=== PATIENT | male | born 1945 | race Caucasian/White ===

== ENCOUNTER → 2021-02-09 09:06 | Outpatient (BNVA) | payer MEDICARE, OTHER, SELFPAY | PROVIDERS: PCP Family Medicine; Visit Provider Urology | DX: N32.0 Bladder-neck obstruction (principal); N52.1 Erectile dysfunction due to diseases classified elsewhere | CPT/HCPCS: Q3014 ==

== ENCOUNTER → 2022-02-08 09:28 | Outpatient (BNVA) | payer MEDICARE, OTHER, SELFPAY | PROVIDERS: PCP Family Medicine; Visit Provider Urology | DX: N32.0 Bladder-neck obstruction (principal); N52.1 Erectile dysfunction due to diseases classified elsewhere; Z79.899 Other long term (current) drug therapy | CPT/HCPCS: 99212 ==

== ENCOUNTER 2023-02-07 09:37 | Outpatient (AMB) | payer MEDICARE, OTHER, SELFPAY ==
--- NOTE | 2023-02-07 09:43 | MHC.OFFVIS ---
Intake Intake Visit Reasons: 1Y PVR Intake Note: Patient is Present for Follow Up PVR Urology Medication: Vitamin B6, Tamsulosin Antibiotic Allergies: None Blood Thinners: None Pharmacy: [facility] PVR: 2ml Allergies No Known Allergies Allergy (Verified 02/07/23 09:44) Medication List - Last Reconciled 02/07/23 by Guido Wolf MD amlodipine 2.5 mg PO DAILY folic acid 1 mg PO DAILY losartan 100 mg PO DAILY pyridoxine (vitamin B6) (Vitamin B-6) 50 mg PO DAILY simvastatin 20 mg PO BEDTIME tamsulosin 0.4 mg PO BEDTIME 90 days HPI HPI Comments History of Present Illness Details Tj Veliz is a very pleasant male. They are a patient of Dr Armstrong. They are seen in the office today for the following urologic conditions. - erectile dysfunction - lower urinary tract symptoms Effective urinary parameters Minimal nocturia, effective stream, effective emptying Lower urinary tract symptoms Current medications tamsulosin 0.4 mg Recent labs included?a PSA (prostate-specific antigen) 2012 0.6,2016 0.8, 10/23 0.7, 10/24 0.8, 10/26 0.8, 01/27 0.9 Continue Erectile dysfunction: No longer consideration ? He presents today for?for continued evaluation and management of erectile dysfunction.? Symptoms have been present for/since?years ago.? Current treatment includes?Viagra/sildenafil 100 mg ? Treatment side effects include?none.? Prior therapies include?oral medications.? At this time he experiences erections?are partial and adequate for vaginal penetration, that last until ejaculation, CHRISTIANA 8-11 Moderate ED.? Nocturnal erections?do not occur.? Currently they are?in a stable relationship, has a partner who is interested in treatment.? Associated problems? hypertension ?Yes ? diabetes ?No ? dyslipidemia ?Yes ? Overall he is ?satisfied with the current management.? Therapeutic plan includes?12 m review.? 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 Surgical History History of surgery Social History Patient Tobacco Use Status: Never used Tobacco Review of Systems Const Denies chills and Denies fever(s) Card Reports no additional complaints and Denies syncope Resp Denies cough GI Denies abdominal pain and Denies heartburn Reports as per HPI and Denies change in libido Neuro Denies syncope Psych Denies change in libido Endo Denies change in libido Physical Exam Const General: cooperative, healthy appearing, comfortable and no acute distress Orientation/consciousness: patient oriented x3 HEENT Face and sinus: Yes normal facial exam Mouth: moist mucous membranes Neck Neck: Yes normal visual inspection, Yes full ROM and Yes trachea midline Chest Chest palpation & inspection: normal inspection of the chest Resp Effort & Inspection: normal respiratory effort, able to speak in complete sentences and no respiratory distress GI Inspection: Yes normal to inspection Back/Spine/Pelvis Cervical Spine: normal cervical lordosis Thoracic/Lumbar Spine: thoracic and lumbar spine normal to inspection Skin General skin exam: no rashes or lesions noted Neuro General: patient oriented x3, gait normal, tone normal and moves all extremities Extrem General: Yes normal to inspection and Yes capillary refill normal Office Procedures Post Void Residual Post Residual Void Post Void Residual (PVR): 2 [id number]-[id number] Void Residual by ultrasound Results AMB Urinalysis, Automated UA Leukoctes 0 Aziza/uL Last Edit by FLORINA Perez on 02/07/23 09:50 UA Nitrite Negative Last Edit by FLORINA Perez on 02/07/23 09:50 UA Urobilinogen 0.2 mg/dL Last Edit by FLORINA Perez on 02/07/23 09:50 UA Protein 0 mg/dL Last Edit by FLORINA Perez on 02/07/23 09:50 UA pH 6.0 Last Edit by FLORINA Perez on 02/07/23 09:50 UA Blood 0 Rommel/uL Last Edit by FLORINA Perez on 02/07/23 09:50 UA Specific [place] 1.020 Last Edit by FLORINA Perez on 02/07/23 09:50 UA Ketone Negative Last Edit by COMPA PerezA on 02/07/23 09:50 UA Bilirubin 0 mg/dL Last Edit by COMPA PerezA on 02/07/23 09:50 UA Glucose 0 mg/dL Last Edit by FLORINA Perez on 02/07/23 09:50 Results Reviewed Results Reviewed: Laboratory Last Values Urine pH (Auto) 6.0 02/07/23 09:44 Specific [place] (Auto) 1.020 02/07/23 09:44 Urine Protein (Auto) 0 mg/dL 02/07/23 09:44 Glucose (UA)(Auto) 0 mg/dL 02/07/23 09:44 Urine Ketones (Auto) Negative 02/07/23 09:44 Urine Blood (Auto) 0 Rommel/uL 02/07/23 09:44 Urine Nitrite (Auto) Negative 02/07/23 09:44 Urine Bilirubin (Auto) 0 mg/dL 02/07/23 09:44 Urine Urobilinogen (Auto) 0.2 mg/dL 02/07/23 09:44 Leukocyte Esterase (Auto) 0 Aziza/uL 02/07/23 09:44 Assessment & Plan Assessment & Plan (1) Bladder outlet obstruction: Code(s): N32.0 - Bladder-neck obstruction Plan Continue yearly review Orders: Orders AMB Post Void Residual by ultrasound 02/07/23 N32.0 - Bladder-neck obstruction Prostate Specific Antigen 364 Days N32.0 - Bladder-neck obstruction AMB Urinalysis Automated 02/07/23 Z13.9 - Encounter for screening, unspecified Patient Instructions: Imaging studies, laboratory and physical exam results were discussed and reviewed in detail. No major barriers to patient understanding were identified. An opportunity to ask questions regarding the treatment plan was provided. All questions were answered. The patient expressed understanding and agreement with the above treatment plan. The patient is aware they should contact our office by phone for worsening of their current condition or the appearance of new urologic symptoms. Compliance is encouraged with any medications and followup testing that is ordered. It is a privilege to participate in the urologic care of your patient. If you have any questions or concerns regarding treatment for the above conditions, or other urologic issues, please do not hesitate to contact me. The office telephone contact is [phone]. This note is constructed using voice recognition software. While every effort has been made to ensure accuracy utility aide errors may have been included. Yours sincerely, Dr Guido Wolf MD, [facility] - Urology Providers of Expert, Compassionate Care for the Genitourinary System Coding Level of Care Code Est Pt Level 4 (75632) Diagnoses Bladder outlet obstruction N32.0 CPT Codes Post Residual Void - PVR CPT Code: 38290-Lzqv Void Residual by ultrasound ([id number])
== END 2023-02-07 10:25 | disposition home or self-care (01) ==
PROVIDERS: PCP Internal Medicine; Visit Provider Urology
DX: N32.0 Bladder-neck obstruction (principal)
CPT/HCPCS: 99213

== ENCOUNTER → 2023-02-07 09:37 | Outpatient (BNVA) | payer MEDICARE, OTHER, SELFPAY | PROVIDERS: Visit Provider Urology | DX: N32.0 Bladder-neck obstruction (principal); N52.9 Male erectile dysfunction, unspecified | CPT/HCPCS: 51798; 81003; 99212 ==

== ENCOUNTER 2023-04-18 09:36 | Outpatient (AMB) | payer MEDICARE, OTHER, SELFPAY ==
--- NOTE | 2023-04-18 10:23 | A.OFFVIS_ITS ---
Intake Intake Visit Reasons: severe hydroureteronephrosis Intake Note: Patient is Present for Follow Up Urology Medication: Vitamin B6, Tamsulosin Antibiotic Allergies: None Blood Thinners: None Allergies No Known Allergies Allergy (Verified 04/18/23 10:26) HPI HPI Comments History of Present Illness Details Tj Veliz is a very pleasant male. He is a patient of Dr Whaley?. He is seen for the following urologic conditions. 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 Found to have left hydroureteronephrosis on evaluation for mildly elevated creatinine Discussed findings Plan cystoscopy, bilateral retrograde, possible left stent placement with fo llow-up Lasix renogram Lower urinary tract symptoms Current medications tamsulosin 0.4 mg Recent labs included?a PSA (prostate-specific antigen) 2012 0.6,2016 0.8, 10/23 0.7, 10/24 0.8, 10/26 0.8, 01/27 0.9 Continue Erectile dysfunction: No longer consideration ? He presents today for?for continued evaluation and management of erectile dysfunction.? Symptoms have been present for/since?years ago.? Current treatment includes?Viagra/sildenafil 100 mg ? Treatment side effects include?none.? Prior therapies include?oral medications.? At this time he experiences erections?are partial and adequate for vaginal penetration, that last until ejaculation, CHRISTIANA 8-11 Moderate ED.? Nocturnal erections?do not occur.? Currently they are?in a stable relationship, has a partner who is interested in treatment.? Associated problems? hypertension ?Yes ? diabetes ?No ? dyslipidemia ?Yes ? Overall he is ?satisfied with the current management.? Therapeutic plan includes?12 m review.? 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 Surgical History History of surgery Social History (System 03/01/23 @ 14:04 by Abi Sky) Patient Tobacco Use Status: Never used Tobacco Review of Systems Const Denies chills and Denies fever(s) Card Reports no additional complaints and Denies syncope Resp Denies cough GI Denies abdominal pain and Denies heartburn Reports as per HPI and Denies change in libido Neuro Denies syncope Psych Denies change in libido Endo Denies change in libido Physical Exam Const General: cooperative, healthy appearing, comfortable and no acute distress Orientation/consciousness: patient oriented x3 HEENT Face and sinus: Yes normal facial exam Mouth: moist mucous membranes Neck Neck: Yes normal visual inspection, Yes full ROM and Yes trachea midline Chest Chest palpation & inspection: normal inspection of the chest Resp Effort & Inspection: normal respiratory effort, able to speak in complete sentences and no respiratory distress GI Inspection: Yes normal to inspection Back/Spine/Pelvis Cervical Spine: normal cervical lordosis Thoracic/Lumbar Spine: thoracic and lumbar spine normal to inspection Skin General skin exam: no rashes or lesions noted Neuro General: patient oriented x3, gait normal, tone normal and moves all extremities Extrem General: Yes normal to inspection and Yes capillary refill normal Assessment & Plan Assessment & Plan (1) Hydroureteronephrosis: Code(s): N13.30 - Unspecified hydronephrosis Plan Risks, benefits and alternatives to therapy were discussed. These include but are not limited to infection, bleeding, damage to local organs and tissues, need for further interventions. Anesthetic risks regarding cardiac arrhythmia, blood clots, and potential mortality were discussed. The patient understands the typical recovery time and the outpatient nature of the procedure. After consideration of these risks the patient gives full informed consent and they wish to move ahead with the procedure. Cystoscopy, bilateral retrograde, left ureteroscopy with stent placement Patient Instructions: Imaging studies, laboratory and physical exam results were discussed and reviewed in detail. No major barriers to patient understanding were identified. An opportunity to ask questions regarding the treatment plan was provided. All questions were answered. The patient expressed understanding and agreement with the above treatment plan. The patient is aware they should contact our office by phone for worsening of their current condition or the appearance of new urologic symptoms. Compliance is encouraged with any medications and followup testing that is ordered. It is a privilege to participate in the urologic care of your patient. If you have any questions or concerns regarding treatment for the above conditions, or other urologic issues, please do not hesitate to contact me. The office telephone contact is [phone]. This note is constructed using voice recognition software. While every effort has been made to ensure accuracy spanish tutor errors may have been included. Yours sincerely, Dr Guido Wolf MD, [facility] - Urology Providers of Expert, Compassionate Care for the Genitourinary System Coding Level of Care Code Est Pt Level 4 (98886) Diagnoses Hydroureteronephrosis N13.30
== END 2023-04-18 11:07 | disposition home or self-care (01) ==
PROVIDERS: PCP Internal Medicine; Visit Provider Urology
DX: N13.30 Unspecified hydronephrosis (principal)
CPT/HCPCS: 99214

== ENCOUNTER → 2023-04-18 09:36 | Outpatient (BNVA) | payer MEDICARE, OTHER, SELFPAY | PROVIDERS: PCP Internal Medicine; Visit Provider Urology | DX: N13.30 Unspecified hydronephrosis (principal) | CPT/HCPCS: 99212 ==

== ENCOUNTER 2023-04-24 11:15 | Day surgery (SDC) | payer MEDICARE, OTHER, SELFPAY ==
[2023-04-24] VITALS (7 sets, daily range): BP systolic 133–148; BP diastolic 77–97; PULSE 65–108; RESP 14–18; TEMP 36.4–37; O2SAT 97–100; BMI 21.1; BMI 21.2
--- NOTE | ~2023-04-24 | FL_ITS ---
EXAMINATION: XR FLUOROSCOPY WITH IMAGES CLINICAL INFORMATION: Cystoscopy, retrograde and stent placement. Bilateral cystoscopy. COMPARISON: None available. TECHNIQUE: Fluoroscopy Supervised By: Dr. Guido Wolf. Fluoroscopy Time: 71.1 seconds. Cumulative Dose: 17.56 mGy. DAP: Not available on machine. Images: 6. FINDINGS: Fluoroscopy guidance for bilateral retrograde exam. 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 Right renal collecting system and ureter is normal. FL/FL guidance in OR IMPRESSION: Fluoroscopy guidance for bilateral retrograde exam.
[2023-04-24] MEDS: Lactated Ringers 1,000 ML 80 ML IVCONT (13:20)
--- NOTE | 2023-04-24 14:46 | PC.NURSE ---
report given to bala graham rn at this time. she is aware of three spots on preop record that need to be signed. also aware that an procedure order and antibiotic order are needed as well.
[2023-04-24] MEDS: levoFLOXacin 500 MG TABLET PO (16:31)
--- NOTE | 2023-04-24 16:41 | HO.ANESPROP2 ---
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 Family History Family history of problems with anesthesia: No Surgical History Surgical History History of surgery History of Problems with Anesthesia: No Social History Social History (System 03/01/23 @ 14:04 by Abi Sky) Patient Tobacco Use Status: Never used Tobacco Use of substances other than those prescribed or required for medical reasons: No Are you DNR?: No Advance Directives: No Advance Directives Information Provided: Yes Meds Allergies Allergy/AdvReac Type Severity Reaction Status Date / Time No Known Allergies Allergy Verified 04/24/23 12:50 Active Medications: Current Medications Lactated Ringer's (Lr) 1,000 mls @ 80 mls/hr IVCONT .[id number] [facility] Last Admin: 04/24/23 13:20 Dose: 80 mls/hr Home Medications Medication Instructions Recorded Confirmed Last Taken Type amlodipine 2.5 mg tablet 2.5 mg PO DAILY 02/09/21 04/24/23 04/24/23 History losartan 50 mg tablet 100 mg PO DAILY 02/09/21 04/24/23 Unknown History pyridoxine (vitamin B6) 50 mg 50 mg PO DAILY 02/09/21 04/24/23 Unknown History tablet (Vitamin B-6) simvastatin 20 mg tablet 20 mg PO BEDTIME 02/09/21 04/24/23 Unknown History Exam Height,Weight and Vital Signs: Height 5 ft 10 in Weight 66.95 kg Last Vital Signs Temp 98.6 F 04/24/23 13:19 Pulse 77 04/24/23 13:19 Resp 18 04/24/23 13:19 BP 133/77 04/24/23 13:19 Pulse Ox 99 04/24/23 13:19 O2 Del Method Room Air 04/24/23 13:19 Airway Mallampati Class: II TM Dist: <=3cm Neck ROM: Full Loose/Missing/Broken Teeth: No Heart: ok Lungs: ok Assessment and Plan Assessment Anesthesia Assessment: Anesthesia Plan Discussed and Chart Reviewed Final Anesthetic Review Family History of Problems with Anesthesia: No History of Problems with Anesthesia: No NPO: Yes ASA Class: III (Frailty) Final Preanesthetic Review: No Changes in Pt Med Stat, Meds/Allgs Chart Reviewed, Consent Obtained/Reviewed and Anes Risks/Benef Reviewed Patient Risk: Intermediate Procedure Risk: Low Anesthetic Plan Anesthetic Plan: MAC: and Agree w/ Assess. and Plan Disposition: Standard PACU
--- NOTE | 2023-04-24 16:52 | MHC.SHP ---
Pre-Procedural Eval Section A Date of Service: 04/24/23 The patient is an INPATIENT: No Changes since office visit: No Cold of Flu in the past 2 weeks, No New Medical Problems, No Changes in Medication and No Patient answered all questions The History & Physical has been completed within 30 days and I have reviewed it.: Yes Section B Chief Complaint: Unspecified hydronephrosis Details of Present Illness: left hydronephrosis Allergies: Allergies Allergy/AdvReac Type Severity Reaction Status Date / Time No Known Allergies Allergy Verified 04/24/23 12:50 Review of Systems Sugical H&P ROS: Negative: Constitution, Cardiovascular, Respiratory, Neurological, Psychiatric, Hem-Onc, Allergic/Immunologic, Gastrointestinal, Genitourinary, Musculoskeletal, Integumentary, Endocrine and Eyes/Ears/Nose/Throat Exam Surgical H&P Exam: Normal: HEENT, Normal: Heart, Normal: Lungs, Normal: Extremities, Normal: Abdomen, Normal: Skin and Normal: Neurological Plan Diagnosis/Plan: Unchanged (bilateral retrogrades, left stent) I have reviewed the history and physical and performed a pertinent physical examination on my patient. No changes have occurred unless specified. Time Spent With Patient Time: Total time managing care of this patient today ____ minutes.
--- NOTE | 2023-04-24 18:05 | P.OP_ITS ---
Operative Note Operative Note Date of Service: 04/24/23 Narrative: PreOperative Diagnosis: Left hydronephrosis Post Operative Diagnosis: Left hydronephrosis Procedure: Cystoscopy, bilateral retrograde, left stent placement Surgeon: Dr Guido Wolf Anesthesia: LMA Indications for procedure: Left hydronephrosis detected through occupational medicine officer Procedure: After informed consent was verified the patient was brought to the operating room and placed in a supine position. Anesthesia was administered per protocol. The patient was placed in modified dorsal lithotomy position and prepped and draped in a sterile fashion. A safety pause time-out was performed. Laterality of procedure and antibiotics were confirmed, appropriate imaging was available A 22 [place]i cystoscope was introduced per urethra. No abnormality was noted of urethra or bladder. Ureteric orifices were very difficult to find. Not visible on initial evaluation with 30 degree scope. Switch to 70 degree scope. Ureteric orifice found lateral and inferior to bladder neck. No apparent trigone. This made cannulize the station difficult. Cannularization was performed using a combination of Alberannz deflection bridge and Glidewire. The right ureter was cannulated with an open ended catheter and a retrograde examination was performed. No filling defects seen. Minimal hydronephrosis seen. The left ureter was cannulated with a Glidewire followed by an open ended catheter and a retrograde examination was performed. No filling defects seen. Moderate hydronephrosis seen. A Sensor guidewire was placed under fluoroscopy and a good coil was seen within the renal pelvis. A 6 [place]i x 28 cm double J stent was advanced over the wire and up to the level of the renal pelvis under fluoroscopic and direct visualization. The stent was seen with appropriate coil within the renal pelvis and in the bladder after deployment. The patient tolerated the procedure well and was transferred in a stable condition to the recovery area. Case discussed with Pathology: Drains: As above
[2023-04-24] MEDS: Phenazopyridine HCL 100 MG TABLET PO (18:18)
== END 2023-04-24 18:42 | disposition home or self-care (01) ==
PROVIDERS: PCP Internal Medicine; Visit Provider Urology
PROC: (CPT 52332; principal; 2023-04-24 13:30)
DX: N13.30 Unspecified hydronephrosis (principal); N52.1 Erectile dysfunction due to diseases classified elsewhere; N32.0 Bladder-neck obstruction; R39.12 Poor urinary stream; I10 Essential (primary) hypertension; E78.00 Pure hypercholesterolemia, unspecified; D51.0 Vitamin B12 deficiency anemia due to intrinsic factor deficiency; Z79.02 Long term (current) use of antithrombotics/antiplatelets; Z79.899 Other long term (current) drug therapy
CPT/HCPCS: 52332; C1758; C1769; C2617; J2704; J3010; Q9967

== ENCOUNTER → 2023-04-24 11:15 | Outpatient (BNV) | payer MEDICARE, OTHER, SELFPAY | PROVIDERS: PCP Internal Medicine; Visit Provider Urology | DX: N13.30 Unspecified hydronephrosis (principal) | CPT/HCPCS: 52332; 74420 ==

== ENCOUNTER → 2023-05-25 08:14 | Outpatient (REF) | payer MEDICARE, OTHER, SELFPAY ==
--- NOTE | ~2023-05-25 | NM_ITS ---
EXAMINATION: RENAL DYNAMIC IMAGING STUDY WITH LASIX CLINICAL INFORMATION: Hydronephrosis. Stent placed 04/24/2023 and left kidney. COMPARISON: No previous radionuclide scan is available for comparison. Retrograde renal study the time of stent placement dated 04/24/2023 is available. TECHNIQUE: Serial gamma scintillation camera images were obtained over the posterior trunk during the initial transit and subsequent distribution of a bolus intravenous injection of 10.0 mCi of Tc-99m DTPA. At 30 minutes later, 38 mg of Lasix was administered intravenously and an additional 30 minutes of images obtained. FINDINGS: Initial rapid sequence images show prompt and bilaterally symmetrical flow to the kidneys. Subsequent sequential static images obtained up to 30 minutes show good concentration bilaterally. The kidneys are approximately equal in size. There is evidence of excretory function by 3 to 4 minutes post injection bilaterally and on the initial images this is slightly more intense on the right. Faint urinary bladder activity is visualized by 10 minutes post injection and this gradually increases as a study progresses. At 30 minutes postinjection there is good visualization of activity in the urinary bladder and only minimal retention in the right renal pelvis which does not appear dilated. There is marked retention and dilatation in the left renal pelvis, however. Following Lasix administration, there is prompt washout of the small amount of retained activity in the right renal pelvis. Washout on the left is much slower and not at all complete. At the end of the study there is moderate to marked retention in the left renal collecting system and marked dilatation. There is no significant retention or dilatation on the right at this time. The T-1/2 washout times following Lasix administration are: Left 35 minutes and right 5 minutes. The relative function of the two kidneys based on the 2-3 minute images are: Left 51% and right 49%. NM/NM renal flow w pharm int IMPRESSION: LEFT KIDNEY: Normal perfusion and function. Marked hydronephrosis with high-grade partial outflow obstruction at the left ureteropelvic junction. RIGHT KIDNEY: Normal perfusion and function. No hydronephrosis or outflow obstruction.
== END ==
LOC: HO.NUCMED 08:14
PROVIDERS: PCP Internal Medicine; Visit Provider Urology
DX: N13.30 Unspecified hydronephrosis (principal); N32.0 Bladder-neck obstruction
CPT/HCPCS: 78708; A9539; J1940

== ENCOUNTER 2023-06-15 11:52 | Outpatient (REF) | payer MEDICARE, OTHER, SELFPAY ==
[2023-06-15 13:26] LABS: Appearance Urine Cloudy; Color Urine Yellow; Glucose Urine UA Negative (Negative); Leukocyte Esterase Urine Small (1+) (Negative); Nitrite Urine Negative (Negative); PH 5.5 (5.0-9.0); UMIC TRIGGER UA YES; Urine Blood Large (3+) (Negative); Urine Ketones Negative (Negative); Urine Protein 30 (1+) mg/dL (Neg-Trace)
[2023-06-15 14:33] LABS: Bacteria Urine None Seen (None Seen); Hyaline Casts Urine 0-2 /LPF (0-2); RBC Urine >20 /HPF (0-2); WBC Urine 0-5 /HPF (0-5)
== END 2023-06-15 11:53 | disposition home or self-care (01) ==
LOC: HO.LAB 11:52
PROVIDERS: Visit Provider Urology
DX: N32.0 Bladder-neck obstruction (principal); N13.30 Unspecified hydronephrosis
CPT/HCPCS: 81001; 87086

== ENCOUNTER 2023-07-05 15:38 | Outpatient (AMB) | payer MEDICARE, OTHER, SELFPAY ==
--- NOTE | 2023-07-05 15:46 | A.OFFVIS_ITS ---
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 He is a patient of Dr Whaley?. He is seen for the following urologic conditions. 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 Lasix renogram shows good uptake and excretion of both kidneys. Delay in emptying of dilated left renal pelvis likely due to dilatation. Stent in place. Discussed laser UPJ incision with AccuSize stent Will be organized Lower urinary tract symptoms Current medications tamsulosin 0.4 mg Recent labs included?a PSA (prostate-specific antigen) 2012 0.6,2016 0.8, 10/23 0.7, 10/24 0.8, 10/26 0.8, 01/27 0.9 Continue Erectile dysfunction: No longer consideration ? He presents today for?for continued evaluation and management of erectile dysfunction.? Symptoms have been present for/since?years ago.? Current treatment includes?Viagra/sildenafil 100 mg ? Treatment side effects include?none.? Prior therapies include?oral medications.? At this time he experiences erections?are partial and adequate for vaginal penetration, that last until ejaculation, CHRISTIANA 8-11 Moderate ED.? Nocturnal erections?do not occur.? Currently they are?in a stable relationship, has a partner who is interested in treatment.? Associated problems? hypertension ?Yes ? diabetes ?No ? dyslipidemia ?Yes ? Overall he is ?satisfied with the current management.? Therapeutic plan includes?12 m review.? 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 Surgical History History of surgery Social History Patient Tobacco Use Status: Never used Tobacco Review of Systems Const Denies chills and Denies fever(s) Card Reports no additional complaints and Denies syncope Resp Denies cough GI Denies abdominal pain and Denies heartburn Reports as per HPI and Denies change in libido Neuro Denies syncope Psych Denies change in libido Endo Denies change in libido Physical Exam Const General: cooperative, healthy appearing, comfortable and no acute distress Orientation/consciousness: patient oriented x3 HEENT Face and sinus: Yes normal facial exam Mouth: moist mucous membranes Neck Neck: Yes normal visual inspection, Yes full ROM and Yes trachea midline Chest Chest palpation & inspection: normal inspection of the chest Resp Effort & Inspection: normal respiratory effort, able to speak in complete sentences and no respiratory distress GI Inspection: Yes normal to inspection Back/Spine/Pelvis Cervical Spine: normal cervical lordosis Thoracic/Lumbar Spine: thoracic and lumbar spine normal to inspection Skin General skin exam: no rashes or lesions noted Neuro General: patient oriented x3, gait normal, tone normal and moves all extremities Extrem General: Yes normal to inspection and Yes capillary refill normal Office Procedures Post Void Residual Post Residual Void Post Void Residual (PVR): 24 50790-Refr Void Residual by ultrasound Assessment & Plan Assessment & Plan (1) UPJ obstruction, acquired: Code(s): N13.5 - Crossing vessel and stricture of ureter without hydronephrosis Plan Risks, benefits and alternatives to therapy were discussed. These include but are not limited to infection, bleeding, damage to local organs and tissues, need for further interventions. Anesthetic risks regarding cardiac arrhythmia, blood clots, and potential mortality were discussed. The patient understands the typical recovery time and the outpatient nature of the procedure. After consideration of these risks the patient gives full informed consent and they wish to move ahead with the procedure. Cystoscopy, left stent removal, left ureteroscopy with laser incision and AccuSize stent placement Orders: Orders AMB Post Void Residual by ultrasound Today R33.9 - Retention of urine, unspecified Patient Instructions: Imaging studies, laboratory and physical exam results were discussed and reviewed in detail. No major barriers to patient understanding were identified. An opportunity to ask questions regarding the treatment plan was provided. All questions were answered. The patient expressed understanding and agreement with the above treatment plan. The patient is aware they should contact our office by phone for worsening of their current condition or the appearance of new urologic symptoms. Compliance is encouraged with any medications and followup testing that is ordered. It is a privilege to participate in the urologic care of your patient. If you have any questions or concerns regarding treatment for the above conditions, or other urologic issues, please do not hesitate to contact me. The office telephone contact is [phone]. This note is constructed using voice recognition software. While every effort has been made to ensure accuracy television engineer errors may have been included. Yours sincerely, Dr Guido Wolf MD, [facility] - Urology Providers of Expert, Compassionate Care for the Genitourinary System Coding Level of Care Code Est Pt Level 4 (98749) Diagnoses UPJ obstruction, acquired N13.5 CPT Codes Post Residual Void - PVR CPT Code: 58621-Hxow Void Residual by ultrasound ([id number])
== END 2023-07-05 16:27 | disposition home or self-care (01) ==
PROVIDERS: PCP Internal Medicine; Visit Provider Urology
DX: N13.5 Crossing vessel and stricture of ureter without hydronephrosis (principal)
CPT/HCPCS: 99214

== ENCOUNTER → 2023-07-05 15:38 | Outpatient (BNVA) | payer MEDICARE, OTHER, SELFPAY | PROVIDERS: PCP Internal Medicine; Visit Provider Urology | DX: N13.5 Crossing vessel and stricture of ureter without hydronephrosis (principal) | CPT/HCPCS: 51798; 99212 ==

== ENCOUNTER 2023-08-14 05:51 | Day surgery (SDC) | payer MEDICARE, OTHER, SELFPAY ==
--- NOTE | 2023-08-11 10:28 | HO.ANESPROP2 ---
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 (Acute) Bladder outlet obstruction (Acute) Past Medical History Medical History (Updated 08/14/23 @ 06:23 by Renata Mix) GERD (gastroesophageal reflux disease) CKD (chronic kidney disease), stage III Pernicious anemia Hypercholesterolemia Hyperlipidemia HTN (hypertension) Weak urinary stream Bladder outlet obstruction 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 Family History Family history of problems with anesthesia: No Surgical History Surgical History (Updated 08/14/23 @ 06:13 by Renata Mix) History of surgical removal of pilonidal cyst H/O colonoscopy H/O varicose vein stripping H/O hernia repair History of Problems with Anesthesia: No Social History Social History Patient Tobacco Use Status: Former Tobacco user Quit Date: 1983 Tobacco use type: Cigarette Years Smoked: 10 Smoked in Last 30 Days: No Use of substances other than those prescribed or required for medical reasons: No Are you DNR?: No Advance Directives: No Advance Directives Information Provided: Yes Meds Allergies Allergy/AdvReac Type Severity Reaction Status Date / Time No Known Allergies Allergy Verified 08/14/23 06:14 Home Medications ?Medication ?Instructions ?Recorded ?Confirmed ?Last Taken ?Type amlodipine 2.5 mg tablet 2.5 mg PO DAILY 02/09/21 08/14/23 08/14/23 History losartan 50 mg tablet 100 mg PO DAILY 02/09/21 08/14/23 08/13/23 History pyridoxine (vitamin B6) 50 mg 50 mg PO DAILY 02/09/21 08/14/23 Unknown History tablet (Vitamin B-6) Assessment and Plan Assessment Anesthesia Assessment: Chart Reviewed Final Anesthetic Review Family History of Problems with Anesthesia: No History of Problems with Anesthesia: No Documented by User: Moo Lehman MD 08/14/23 07:26 PMF Past Medical History Medical History (Updated 08/14/23 @ 06:23 by Renata Mix) GERD (gastroesophageal reflux disease) CKD (chronic kidney disease), stage III Pernicious anemia Hypercholesterolemia Hyperlipidemia HTN (hypertension) Weak urinary stream Bladder outlet obstruction 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 Surgical History Surgical History (Updated 08/14/23 @ 06:13 by Renata Mix) History of surgical removal of pilonidal cyst H/O colonoscopy H/O varicose vein stripping H/O hernia repair Social History Social History Patient Tobacco Use Status: Former Tobacco user Quit Date: 1983 Tobacco use type: Cigarette Years Smoked: 10 Smoked in Last 30 Days: No Use of substances other than those prescribed or required for medical reasons: No Are you DNR?: No Advance Directives: No Advance Directives Information Provided: Yes Meds Allergies Allergy/AdvReac Type Severity Reaction Status Date / Time No Known Allergies Allergy Verified 08/14/23 06:14 Home Medications ?Medication ?Instructions ?Recorded ?Confirmed ?Last Taken ?Type amlodipine 2.5 mg tablet 2.5 mg PO DAILY 02/09/21 08/14/23 08/14/23 History losartan 50 mg tablet 100 mg PO DAILY 02/09/21 08/14/23 08/13/23 History pyridoxine (vitamin B6) 50 mg 50 mg PO DAILY 02/09/21 08/14/23 Unknown History tablet (Vitamin B-6) Exam Airway Mallampati Class: II TM Dist: >3cm Neck ROM: Full Heart: ok Lungs: ok Assessment and Plan Assessment Anesthesia Assessment: Anesthesia Plan Discussed Final Anesthetic Review NPO: Yes ASA Class: III Final Preanesthetic Review: No Changes in Pt Med Stat, Meds/Allgs Chart Reviewed, Consent Obtained/Reviewed and Anes Risks/Benef Reviewed Patient Risk: Intermediate Procedure Risk: Low Anesthetic Plan Anesthetic Plan: GA and Agree w/ Assess. and Plan Disposition: Standard PACU
[2023-08-14] VITALS (7 sets, daily range): BP systolic 109–145; BP diastolic 55–81; PULSE 52–94; RESP 16–18; TEMP 36.2–36.7; O2SAT 96–100; BMI 23.7
--- NOTE | ~2023-08-14 | FL_ITS ---
EXAMINATION: XR FLUOROSCOPY WITH IMAGES CLINICAL INFORMATION: Left ureteric stent placement. COMPARISON: None available. TECHNIQUE: Fluoroscopy Supervised By: Dr. Guido Wolf. Fluoroscopy Time: 53.2 seconds. Cumulative Dose: 14.60 mGy. Images: 3. FINDINGS: The submitted images show a ureteroscope and guidewire. There is contrast extravasated in the left upper quadrant, possibly outlining bowel loops. A double pigtail left ureteric stent is seen, with proximal pigtail in the left upper quadrant and distal pigtail projecting over the urinary bladder. FL/FL guidance in OR IMPRESSION: Intraoperative fluoroscopic guidance is provided during left ureteric stent placement. Please see the patient's Operative Report for full procedural details.
[2023-08-14] MEDS: Lactated Ringers 1,000 ML 100 ML IVCONT (06:35)
--- NOTE | 2023-08-14 07:00 | PC.NURSE ---
Patient arrived to preop, SB with first degree AV block on monitor. No EKG on file. Patient states I have a low heart rate usually . Dr. Lehman at bedside and made aware. No new orders.
--- NOTE | 2023-08-14 07:03 | MHC.SHP ---
Pre-Procedural Eval Section A - 24 Hr Update-Section A only Date of Service: 08/14/23 The patient is an INPATIENT: No Changes since office visit: No Cold of Flu in the past 2 weeks, No New Medical Problems, No Changes in Medication and No Patient answered all questions The patient has been examined within 24 hours of the surgical procedure. The History & Physical has been completed within 30 days and I have reviewed it.: Yes Section B - Complete if H&P > 30 days Chief Complaint: Unspecified hydronephrosis,crossing vessel Details of Present Illness: UPJ obstruction Relevant Family History (Specify if Yes): No Relevant Social History: None Present Medications: see Short Stay Collaborative assessment Medical History: Significant History History of Previous Operations: Relevant previous surgery/procedure and date(s) Allergies: Allergies Allergy/AdvReac Type Severity Reaction Status Date / Time No Known Allergies Allergy Verified 08/14/23 06:14 Review of Systems Sugical H&P ROS: Negative: Constitution, Cardiovascular, Respiratory, Neurological, Psychiatric, Hem-Onc, Allergic/Immunologic, Gastrointestinal, Genitourinary, Musculoskeletal, Integumentary, Endocrine and Eyes/Ears/Nose/Throat Exam Surgical H&P Exam: Normal: HEENT, Normal: Heart, Normal: Lungs, Normal: Extremities, Normal: Abdomen, Normal: Skin and Normal: Neurological Plan Diagnosis/Plan: Change I have reviewed the history and physical and performed a pertinent physical examination on my patient. No changes have occurred unless specified. Time Spent With Patient Time: Total time managing care of this patient today ____ minutes.
--- NOTE | 2023-08-14 08:31 | W.PM.OPN ---
Operative Note Operative Note Date of Service: 08/14/23 Narrative: PreOperative Diagnosis: Left UPJ obstruction Post Operative Diagnosis: Left UPJ obstruction Procedure: Cystoscopy, left stent removal, left retrograde, laser incision of left UPJ, retromax stent placement Surgeon: Dr Guido Wolf Anesthesia: LMA Indications for procedure: Left UPJ obstruction Procedure: After informed consent was verified the patient was brought to the operating room and placed in a supine position. Anesthesia was administered per protocol. The patient was prepped and draped in a sterile fashion. Safety pause time-out was performed. Antibiotics being given. A 22 Macedonian cystoscope was placed into the bladder. The patient had ureteric orifice that were very close to the bladder neck. Stent was seen emerging from the left side. Using an open-ended 4 Macedonian ureteric catheter a sensor guidewire was placed alongside the stent up to the renal pelvis. The indwelling stent was grasped and removed. Semi rigid ureteral scope was placed alongside the guidewire up to the stenotic UPJ. The UPJ narrowing was clearly visible. Endo incision technique was performed using a 365 holmium laser fiber. Settings of 1.5-2.0 joules with a frequency of 10-20 hertz. The UPJ was incised under direct vision. The 1st small incision was made medial to lateral. This was taken just through the mucosa as the vessel is located in this area. The 2nd and primary incision was made in the posterolateral position. This was taken down until surrounding tissue was clearly visible. The ureteral scope was able to be passed into the renal pelvis. Complete incision was confirmed by retrograde contrast examination which showed extravasation of contrast substance confirming full-thickness incision in the posterolateral position. At the completion of the incision the ureteral scope was removed. An open-ended catheter was placed over the sensor guidewire. The guidewire was switched for a super stiff Amplatz wire. An 8/12 retro max pyelostomy stent was then loaded onto the wire and using the cystoscope was guided into the renal pelvis. Imaging confirmed placement of the dilated section of the stent over the UPJ narrowing. Stent was deployed. And will remain in place for 6-8 weeks. Bladder was emptied The patient tolerated the procedure well was extubated in operating room and transferred in stable condition to the recovery area Pathology: Drains: Retro max
[2023-08-14] MEDS: Phenazopyridine HCL 100 MG TABLET PO (08:53)
== END 2023-08-14 10:12 | disposition home or self-care (01) ==
PROVIDERS: Visit Provider Urology
PROC: (CPT 52310; principal; 2023-08-14 07:30)
PROC: (CPT 52332; 2023-08-14 07:30)
DX: N13.0 Hydronephrosis with ureteropelvic junction obstruction (principal); N13.5 Crossing vessel and stricture of ureter without hydronephrosis; R33.9 Retention of urine, unspecified; N52.9 Male erectile dysfunction, unspecified; Z79.899 Other long term (current) drug therapy
CPT/HCPCS: 52332; 52276; C1758; C1769; C2617; J1956; J2704; J3010; Q9967

== ENCOUNTER → 2023-08-14 05:51 | Outpatient (BNV) | payer MEDICARE, OTHER, SELFPAY | PROVIDERS: Visit Provider Urology | DX: N13.5 Crossing vessel and stricture of ureter without hydronephrosis (principal) | CPT/HCPCS: 52332; 74420 ==

== ENCOUNTER 2023-09-12 10:56 | Outpatient (AMB) | payer MEDICARE, OTHER, SELFPAY ==
--- NOTE | 2023-09-12 10:57 | MHC.OFFVIS ---
Intake Visit Reasons: laser of UPJ obs- F/U Discuss next procedure Intake Note: Patient is Present for Telephone Follow Up For Urology Med:Tamsulosin, Vitamin B6 Antibiotic Allergy: None Blood Thinner: none Allergies No Known Allergies Allergy (Verified 08/14/23 06:14) HPI Comments Details: Tj Veliz is a very pleasant male. He is a patient of Dr Del Valle. He is seen for the following urologic conditions. 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 Telemedicine Evaluation 15 min Consultation Lucky Pai Nohemy Video attempted Discussed upcoming procedure Plan for removal of exercise stent with retrograde and possible inspection of UPJ Partial UPJ obstruction on left side Lasix renogram shows good uptake and excretion of both kidneys. Delay in emptying of dilated left renal pelvis likely due to dilatation Intervention - Discussed laser UPJ incision with AccuSize stent Lower urinary tract symptoms Current medications tamsulosin 0.4 mg Recent labs included?a PSA (prostate-specific antigen) 2012 0.6,2016 0.8, 10/23 0.7, 10/24 0.8, 10/26 0.8, 01/27 0.9 Continue Erectile dysfunction: No longer consideration ? He presents today for?for continued evaluation and management of erectile dysfunction.? Symptoms have been present for/since?years ago.? Current treatment includes?Viagra/sildenafil 100 mg ? Treatment side effects include?none.? Prior therapies include?oral medications.? At this time he experiences erections?are partial and adequate for vaginal penetration, that last until ejaculation, CHRISTIANA 8-11 Moderate ED.? Nocturnal erections?do not occur.? Currently they are?in a stable relationship, has a partner who is interested in treatment.? Associated problems? hypertension ?Yes ? diabetes ?No ? dyslipidemia ?Yes ? Overall he is ?satisfied with the current management.? Therapeutic plan includes?12 m review.? 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 Surgical History (Updated 08/14/23 @ 06:13 by Renata Mix) History of surgical removal of pilonidal cyst H/O colonoscopy H/O varicose vein stripping H/O hernia repair Social History Patient Tobacco Use Status: Former Tobacco user Quit Date: 1983 Tobacco use type: Cigarette Years Smoked: 10 Review of Systems Const All systems reviewed & are unremarkable except as noted in HPI and below Reports no additional complaints Resp Reports no additional complaints GI Reports no additional complaints Reports as per HPI Musc Reports no additional complaints Physical Exam Telemedicine evaluation Appropriate responses Regular breathing rate and rhythm HEENT Head: Yes normal to inspection Ears: hearing grossly normal bilaterally Eyes General: appearance normal, both eyes and all related structures Neck Neck: Yes normal visual inspection Chest Chest palpation & inspection: normal inspection of the chest Resp Effort & Inspection: normal respiratory effort and able to speak in complete sentences Telehealth Telehealth Telehealth Platform: Lucky Pai Location of provider rendering services: practice address Location of patient: address on file Patient Identification confirmed using: Name, : Yes Telehealth method: voice only Patient verbally consented to treatment: Yes Patient verbally consented to billing insurance company: Yes Patient informed of any privacy concerns related to visit: Yes Minutes spent on Phone/Video with Pt.: 15 Assessment & Plan Assessment & Plan (1) UPJ obstruction, acquired: Code(s): N13.5 - Crossing vessel and stricture of ureter without hydronephrosis Category: Medical (2) Hydroureteronephrosis: Code(s): N13.30 - Unspecified hydronephrosis Category: Medical Plan Upcoming procedure Risks, benefits and alternatives to therapy were discussed. These include but are not limited to infection, bleeding, damage to local organs and tissues, need for further interventions. Anesthetic risks regarding cardiac arrhythmia, blood clots, and potential mortality were discussed. The patient understands the typical recovery time and the outpatient nature of the procedure. After consideration of these risks the patient gives full informed consent and they wish to move ahead with the procedure. Cystoscopy, left stent removal, ureteroscopy Patient Instructions: Imaging studies, laboratory and physical exam results were discussed and reviewed in detail. No major barriers to patient understanding were identified. An opportunity to ask questions regarding the treatment plan was provided. All questions were answered. The patient expressed understanding and agreement with the above treatment plan. The patient is aware they should contact our office by phone for worsening of their current condition or the appearance of new urologic symptoms. Compliance is encouraged with any medications and followup testing that is ordered. It is a privilege to participate in the urologic care of your patient. If you have any questions or concerns regarding treatment for the above conditions, or other urologic issues, please do not hesitate to contact me. The office telephone contact is [phone]. This note is constructed using voice recognition software. While every effort has been made to ensure accuracy tripe cooker errors may have been included. Yours sincerely, Dr Guido Wolf MD, [facility] - Urology Providers of Expert, Compassionate Care for the Genitourinary System Coding Level of Care Code Tele Est Pt Level 3 (71007) Diagnoses UPJ obstruction, acquired N13.5 Hydroureteronephrosis N13.30
== END 2023-09-12 11:33 | disposition home or self-care (01) ==
LOC: HO.HUSH 10:56
PROVIDERS: Visit Provider Urology
DX: N13.5 Crossing vessel and stricture of ureter without hydronephrosis (principal); N13.30 Unspecified hydronephrosis
CPT/HCPCS: 99442

== ENCOUNTER → 2023-09-12 10:56 | Outpatient (BNVA) | payer MEDICARE, OTHER, SELFPAY | PROVIDERS: Visit Provider Urology ==

== ENCOUNTER 2023-09-25 11:23 | Day surgery (SDC) | payer MEDICARE, OTHER, SELFPAY ==
[2023-09-21 10:19] VITALS: BMI 23.7
--- NOTE | 2023-09-21 15:35 | HO.ANESPROP2 ---
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 (Acute) Bladder outlet obstruction (Acute) Past Medical History Medical History GERD (gastroesophageal reflux disease) CKD (chronic kidney disease), stage III Pernicious anemia Hypercholesterolemia Hyperlipidemia HTN (hypertension) Weak urinary stream Bladder outlet obstruction 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 Family History Family history of problems with anesthesia: No Surgical History Surgical History Hx of cystoscopy History of surgical removal of pilonidal cyst H/O colonoscopy H/O varicose vein stripping H/O hernia repair History of Problems with Anesthesia: No Social History Social History Patient Tobacco Use Status: Former Tobacco user Quit Date: 1983 Tobacco use type: Cigarette Years Smoked: 10 Meds Allergies Allergy/AdvReac Type Severity Reaction Status Date / Time No Known Allergies Allergy Verified 09/25/23 12:43 Home Medications ?Medication ?Instructions ?Recorded ?Confirmed ?Last Taken ?Type amlodipine 2.5 mg tablet 2.5 mg PO DAILY 02/09/21 09/21/23 09/25/23 History losartan 50 mg tablet 100 mg PO DAILY 02/09/21 09/21/23 08/13/23 History pyridoxine (vitamin B6) 50 mg 50 mg PO DAILY 02/09/21 09/21/23 Unknown History tablet (Vitamin B-6) simvastatin 20 mg tablet 20 mg PO BEDTIME 09/21/23 09/21/23 Unknown History Exam Height,Weight and Vital Signs: Height 5 ft 8 in Weight 70.67 kg Assessment and Plan Assessment Anesthesia Assessment: Chart Reviewed Final Anesthetic Review Family History of Problems with Anesthesia: No History of Problems with Anesthesia: No
[2023-09-25] VITALS (8 sets, daily range): BP systolic 118–139; BP diastolic 65–86; PULSE 55–100; RESP 14–18; TEMP 36.2–36.7; O2SAT 96–100; BMI 22.3
--- NOTE | ~2023-09-25 | FL_ITS ---
EXAMINATION: XR FLUOROSCOPY WITH IMAGES CLINICAL INFORMATION: Cystoscopy, ureteroscopy, retrograde. COMPARISON: None available. TECHNIQUE: Fluoroscopy Supervised By: Dr. Guido Wolf. Fluoroscopy Time: 0.3 minutes/19.8 seconds. Cumulative Dose: 3.77 mGy. DAP: No DAP. Images: 8. FINDINGS: Intraoperative fluoroscopy and spot films were performed during a procedure in the OR. There is left-sided pelvocaliectasis. There is irregularity of the left ureter with some proximal strictures. Please see Dr. Guido Wolf's report for complete details. FL/FL guidance in OR IMPRESSION: Intraoperative fluoroscopy and spot films were obtained. Please see Dr. Guido Wolf's report for complete details.
[2023-09-25] MEDS: Lactated Ringers 1,000 ML 100 ML IVCONT (12:55)
--- NOTE | 2023-09-25 13:00 | HO.ANESPROP2 ---
[facility] Active Problems Active Problems: All Active Problems UPJ obstruction, acquired (Acute) Hydroureteronephrosis (Acute) 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 (Acute) Bladder outlet obstruction (Acute) Past Medical History Medical History GERD (gastroesophageal reflux disease) CKD (chronic kidney disease), stage III Pernicious anemia Hypercholesterolemia Hyperlipidemia HTN (hypertension) Weak urinary stream Bladder outlet obstruction 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 Functional capacity: independent ambulation Family History Family history of problems with anesthesia: No Surgical History Surgical History Hx of cystoscopy History of surgical removal of pilonidal cyst H/O colonoscopy H/O varicose vein stripping H/O hernia repair History of Problems with Anesthesia: No Social History Social History Patient Tobacco Use Status: Former Tobacco user Quit Date: 1983 Tobacco use type: Cigarette Years Smoked: 10 Use of substances other than those prescribed or required for medical reasons: No Are you DNR?: No Advance Directives: No Advance Directives Information Provided: Yes Advance Directives on File: No Meds Allergies Allergy/AdvReac Type Severity Reaction Status Date / Time No Known Allergies Allergy Verified 09/25/23 12:43 Active Medications: Current Medications Lactated Ringer's (Lr) 1,000 mls @ 100 mls/hr IVCONT .Q10H GUZMAN Last Admin: 09/25/23 12:55 Dose: 100 mls/hr Home Medications ?Medication ?Instructions ?Recorded ?Confirmed ?Last Taken ?Type amlodipine 2.5 mg tablet 2.5 mg PO DAILY 02/09/21 09/21/23 09/25/23 History losartan 50 mg tablet 100 mg PO DAILY 02/09/21 09/21/23 08/13/23 History pyridoxine (vitamin B6) 50 mg 50 mg PO DAILY 02/09/21 09/21/23 Unknown History tablet (Vitamin B-6) simvastatin 20 mg tablet 20 mg PO BEDTIME 09/21/23 09/21/23 Unknown History Exam Height,Weight and Vital Signs: Height 5 ft 8 in Weight 66.678 kg Assessment and Plan Final Anesthetic Review Family History of Problems with Anesthesia: No History of Problems with Anesthesia: No
[2023-09-25 13:02] LABS: Hematocrit 34.1 % (42.0-52.0); Hemoglobin 11.3 g/dl (14.0-18.0); Mean Corpuscular HGB Conc 33.1 g/dl (31.0-36.0); Mean Corpuscular Hemoglobin 28.7 pg (27.0-33.0); Mean Corpuscular Volume 86.5 fL (80.0-98.0); Mean Platelet Volume 8.5 fL (9.4-12.4); Platelet Count 222 X10*3/uL (160-400); Red Blood Count 3.94 X10*6/uL (4.60-5.80); Red Cell Distribution Width 13.1 % (11.0-16.0); White Blood Count 4.7 X10*3/uL (4.8-10.8)
[2023-09-25 13:16] LABS: Anion Gap 13 (12-20); Blood Urea Nitrogen 18 mg/dL (9-16); Calcium 8.7 mg/dL (8.4-10.2); Carbon Dioxide 23 mmol/L (22-29); Chloride 111 mmol/L (96-108); Estimated Glomerular Filt Rate > 60; Glucose Fasting 87 mg/dL (60-99); Sodium 143 mmol/L (135-145)
--- NOTE | 2023-09-25 13:27 | HO.ANESPROP2 ---
[facility] Active Problems Active Problems: All Active Problems UPJ obstruction, acquired (Acute) Hydroureteronephrosis (Acute) 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 (Acute) Bladder outlet obstruction (Acute) Past Medical History Medical History GERD (gastroesophageal reflux disease) CKD (chronic kidney disease), stage III Pernicious anemia Hypercholesterolemia Hyperlipidemia HTN (hypertension) Weak urinary stream Bladder outlet obstruction 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 Functional capacity: independent ambulation Family History Family history of problems with anesthesia: No Surgical History Surgical History Hx of cystoscopy History of surgical removal of pilonidal cyst H/O colonoscopy H/O varicose vein stripping H/O hernia repair History of Problems with Anesthesia: No Social History Social History Patient Tobacco Use Status: Former Tobacco user Quit Date: 1983 Tobacco use type: Cigarette Years Smoked: 10 Use of substances other than those prescribed or required for medical reasons: No Are you DNR?: No Advance Directives: No Advance Directives Information Provided: Yes Advance Directives on File: No Meds Allergies Allergy/AdvReac Type Severity Reaction Status Date / Time No Known Allergies Allergy Verified 09/25/23 12:43 Active Medications: Current Medications Fentanyl (Fentanyl Citrate/Pf 100 Mcg/2 Ml Vial) 25 mcg IVPUSH Q5M PRN; Protocol PRN Reason: Pain, Moderate(Pain Scale 4-6) Stop: 09/25/23 19:01 Lactated Ringer's (Lr) 1,000 mls @ 100 mls/hr IVCONT .Q10H GUZMAN Last Admin: 09/25/23 12:55 Dose: 100 mls/hr Ondansetron HCl (Ondansetron Hcl 4 Mg/2 Ml Vial) 4 mg IVPUSH ONCE PRN PRN Reason: Nausea and Vomiting Stop: 09/25/23 19:01 Home Medications ?Medication ?Instructions ?Recorded ?Confirmed ?Last Taken ?Type amlodipine 2.5 mg tablet 2.5 mg PO DAILY 02/09/21 09/21/23 09/25/23 History losartan 50 mg tablet 100 mg PO DAILY 10/09/2509/21/23 08/13/23 History pyridoxine (vitamin B6) 50 mg 50 mg PO DAILY 02/09/21 09/21/23 Unknown History tablet (Vitamin B-6) simvastatin 20 mg tablet 20 mg PO BEDTIME 09/21/23 09/21/23 Unknown History Exam Height,Weight and Vital Signs: Height 5 ft 8 in Weight 66.678 kg Last Vital Signs Temp 98.1 F 09/25/23 13:09 Pulse 55 09/25/23 13:09 Resp 18 09/25/23 13:09 BP 135/65 09/25/23 13:09 Pulse Ox 98 09/25/23 13:09 O2 Del Method Room Air 09/25/23 13:09 Pertinent Lab Results Pertinent Lab Results: Laboratory Tests 09/25/23 12:59 WBC 4.7 L RBC 3.94 L Hgb 11.3 L Hct 34.1 L MCV 86.5 MCH 28.7 MCHC 33.1 RDW 13.1 Plt Count 222 MPV 8.5 L Absolute Nucleated RBC 0.000 Nucleated RBC % (auto) 0.0 Sodium 143 Potassium 4.0 Chloride 111 H Carbon Dioxide 23 Anion Gap 13 BUN 18 H Creatinine 1.18 Estim Creat Clear Calc 51.0 Estimated GFR > 60 Fasting Glucose 87 Calcium 8.7 Airway Mallampati Class: II TM Dist: >3cm Neck ROM: Full Heart: RRR Lungs: CTA Assessment and Plan Assessment Anesthesia Assessment: Anesthesia Plan Discussed Final Anesthetic Review Family History of Problems with Anesthesia: No History of Problems with Anesthesia: No NPO: Yes ASA Class: II Final Preanesthetic Review: Meds/Allgs Chart Reviewed and Anes Risks/Benef Reviewed Patient Risk: Intermediate Procedure Risk: Low Anesthetic Plan Anesthetic Plan: GA Disposition: Standard PACU
--- NOTE | 2023-09-25 15:08 | MHC.SHP ---
Pre-Procedural Eval Section A - 24 Hr Update-Section A only Date of Service: 09/25/23 The patient is an INPATIENT: No Changes since office visit: No Cold of Flu in the past 2 weeks, No New Medical Problems, No Changes in Medication and No Patient answered all questions The patient has been examined within 24 hours of the surgical procedure. The History & Physical has been completed within 30 days and I have reviewed it.: Yes Section B - Complete if H&P > 30 days Chief Complaint: Unspecified hydronephrosis Allergies: Allergies Allergy/AdvReac Type Severity Reaction Status Date / Time No Known Allergies Allergy Verified 09/25/23 12:43 Plan Diagnosis/Plan: Unchanged (Cystoscopy, left stent removal, left retrograde with possible ureteroscopy) I have reviewed the history and physical and performed a pertinent physical examination on my patient. No changes have occurred unless specified. Time Spent With Patient Time: Total time managing care of this patient today ____ minutes.
--- NOTE | 2023-09-25 16:10 | W.PM.OPN ---
Operative Note Operative Note Date of Service: 09/25/23 Narrative: PreOperative Diagnosis: Left indwelling AccuSize stent, hydronephrosis Post Operative Diagnosis: Indwelling AccuSize stent, hydronephrosis Procedure: Cystoscopy, left stent removal, left retrograde, left ureteroscopy diagnostic Surgeon: Dr Guido Wolf Anesthesia: LMA Indications for procedure: Prior incision of UPJ with laser and stent placement Procedure: After informed consent was verified the patient was brought to the operating room and placed in a supine position. Anesthesia was administered per protocol. The patient was prepped and draped in a sterile fashion. Safety pause time-out was performed. Antibiotics being given. Twenty-four Hebrew cystoscope inserted per urethra. No abnormality noted the anterior-posterior urethra. Exercise stent seen exiting left ureter. Of note his left ureteric orifice was just proximal to the bladder neck. May represent some type of variation of development. Open-ended catheter placed. Retrograde examination performed. Dilated hydronephrotic left kidney. Did appear to have some draining. Sensor guidewire placed. Flexible ureteral scope placed over the wire up into the renal pelvis. Scope easily entered renal pelvis. Wire removed. Scope used to examined UPJ. Easily able to remove and reintroduced scope indicative of at least 6-7 Hebrew opening. Kidney drained. Patient was extubated in the operating room transferred in stable condition to the recovery area. Pathology: Drains:
[2023-09-25] MEDS: Phenazopyridine HCL 100 MG TABLET PO (16:15)
== END 2023-09-25 17:41 | disposition home or self-care (01) ==
PROVIDERS: Nurse Practitioner; Visit Provider Urology
PROC: (CPT 52351; principal; 2023-09-25 14:30)
DX: N13.30 Unspecified hydronephrosis (principal); Z46.6 Encounter for fitting and adjustment of urinary device; N13.5 Crossing vessel and stricture of ureter without hydronephrosis; N52.9 Male erectile dysfunction, unspecified; R39.12 Poor urinary stream; I12.9 Hypertensive chronic kidney disease with stage 1 through stage 4 chronic kidney disease, or unspecified chronic kidney disease; N18.30 Chronic kidney disease, stage 3 unspecified; D51.0 Vitamin B12 deficiency anemia due to intrinsic factor deficiency; E78.00 Pure hypercholesterolemia, unspecified; Z79.899 Other long term (current) drug therapy; Z87.891 Personal history of nicotine dependence
CPT/HCPCS: 52351; 36415; 80048; 85027; C1758; C1769; J0131; J1956; J2704; J3010; Q9967

== ENCOUNTER → 2023-09-25 11:23 | Outpatient (BNV) | payer MEDICARE, OTHER, SELFPAY | PROVIDERS: Visit Provider Urology | DX: N13.30 Unspecified hydronephrosis (principal); Z96.0 Presence of urogenital implants | CPT/HCPCS: 52310; 74420 ==

== ENCOUNTER 2023-10-17 11:50 | Outpatient (AMB) | payer MEDICARE, OTHER, SELFPAY ==
--- NOTE | 2023-10-17 11:57 | A.OFFVIS_ITS ---
Intake Visit Reasons: L Retrograde- follow up Allergies No Known Allergies Allergy (Verified 12/19/23 09:37) Medication List - Last Reconciled 10/17/23 by Guido Wolf MD amlodipine 2.5 mg PO DAILY losartan 100 mg PO DAILY pyridoxine (vitamin B6) (Vitamin B-6) 50 mg PO DAILY simvastatin 20 mg PO BEDTIME tamsulosin 0.4 mg PO BEDTIME 90 days HPI Comments Details: Tj Veliz is a very pleasant male. He is a patient of Dr Del Valle. He is seen for the following urologic conditions. 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 Discussed findings of left hydronephrosis at procedure No evidence of obstruction Plan Lasix renogram follow-up Partial UPJ obstruction on left side Lasix renogram shows good uptake and excretion of both kidneys. Delay in emptying of dilated left renal pelvis likely due to dilatation Intervention - Discussed laser UPJ incision with AccuSize stent Lower urinary tract symptoms Current medications tamsulosin 0.4 mg Recent labs included?a PSA (prostate-specific antigen) 2012 0.6,2016 0.8, 10/23 0.7, 10/24 0.8, 10/26 0.8, 01/27 0.9 Continue Erectile dysfunction: No longer consideration ? He presents today for?for continued evaluation and management of erectile dysfunction.? Symptoms have been present for/since?years ago.? Current treatment includes?Viagra/sildenafil 100 mg ? Treatment side effects include?none.? Prior therapies include?oral medications.? At this time he experiences erections?are partial and adequate for vaginal penetration, that last until ejaculation, CHRISTIANA 8-11 Moderate ED.? Nocturnal erections?do not occur.? Currently they are?in a stable relationship, has a partner who is interested in treatment.? Associated problems? hypertension ?Yes ? diabetes ?No ? dyslipidemia ?Yes ? Overall he is ?satisfied with the current management.? Therapeutic plan includes?12 m review.? PFSH Medical History GERD (gastroesophageal reflux disease) CKD (chronic kidney disease), stage III Pernicious anemia Hypercholesterolemia Hyperlipidemia HTN (hypertension) Weak urinary stream Bladder outlet obstruction 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 Surgical History Hx of cystoscopy History of surgical removal of pilonidal cyst H/O colonoscopy H/O varicose vein stripping H/O hernia repair Social History Patient Tobacco Use Status: Former Tobacco user Tobacco use type: Cigarette Years Smoked: 10 Review of Systems Const Denies chills and Denies fever(s) Card Reports no additional complaints and Denies syncope Resp Denies cough GI Denies abdominal pain and Denies heartburn Reports as per HPI and Denies change in libido Neuro Denies syncope Psych Denies change in libido Endo Denies change in libido Physical Exam Const General: cooperative, healthy appearing, comfortable and no acute distress Orientation/consciousness: patient oriented x3 HEENT Face and sinus: Yes normal facial exam Mouth: moist mucous membranes Neck Neck: Yes normal visual inspection, Yes full ROM and Yes trachea midline Chest Chest palpation & inspection: normal inspection of the chest Resp Effort & Inspection: normal respiratory effort, able to speak in complete sentences and no respiratory distress GI Inspection: Yes normal to inspection Back/Spine/Pelvis Cervical Spine: normal cervical lordosis Thoracic/Lumbar Spine: thoracic and lumbar spine normal to inspection Skin General skin exam: no rashes or lesions noted Neuro General: patient oriented x3, gait normal, tone normal and moves all extremities Extrem General: Yes normal to inspection and Yes capillary refill normal Assessment & Plan Assessment & Plan (1) UPJ obstruction, acquired: Code(s): N13.5 - Crossing vessel and stricture of ureter without hydronephrosis Category: Medical (2) Hydroureteronephrosis: Code(s): N13.30 - Unspecified hydronephrosis Category: Medical Plan Follow-up Lasix renogram Orders: Orders NM renal flow w pharm int 2 Months N13.30 - Unspecified hydronephrosis, N13.5 - Crossing vessel and stricture of ureter without hydronephrosis Patient Instructions: Imaging studies, laboratory and physical exam results were discussed and reviewed in detail. No major barriers to patient understanding were identified. An opportunity to ask questions regarding the treatment plan was provided. All questions were answered. The patient expressed understanding and agreement with the above treatment plan. The patient is aware they should contact our office by phone for worsening of their current condition or the appearance of new urologic symptoms. Compliance is encouraged with any medications and followup testing that is ordered. It is a privilege to participate in the urologic care of your patient. If you have any questions or concerns regarding treatment for the above conditions, or other urologic issues, please do not hesitate to contact me. The office tele phone contact is [phone]. This note is constructed using voice recognition software. While every effort has been made to ensure accuracy telegraph installer errors may have been included. Yours sincerely, Dr Guido Wolf MD, [facility] - Urology Providers of Expert, Compassionate Care for the Genitourinary System Coding Level of Care Code Est Pt Level 3 (17161) Diagnoses UPJ obstruction, acquired N13.5 Hydroureteronephrosis N13.30
== END 2023-10-17 12:29 | disposition home or self-care (01) ==
PROVIDERS: Visit Provider Urology
DX: N13.5 Crossing vessel and stricture of ureter without hydronephrosis (principal); N13.30 Unspecified hydronephrosis
CPT/HCPCS: 99213

== ENCOUNTER → 2023-10-17 11:50 | Outpatient (BNVA) | payer MEDICARE, OTHER, SELFPAY | PROVIDERS: Visit Provider Urology | DX: N13.30 Unspecified hydronephrosis (principal); N13.5 Crossing vessel and stricture of ureter without hydronephrosis | CPT/HCPCS: 99212 ==

== ENCOUNTER → 2023-11-28 12:52 | Outpatient (REF) | payer MEDICARE, OTHER, SELFPAY ==
--- NOTE | ~2023-11-28 | NM_ITS ---
EXAMINATION: NM RENOGRAM WITH LASIX CLINICAL INFORMATION: Unspecified hydronephrosis. History of left-sided renal stent removal on September 2023. COMPARISON: Renal scintigram with Lasix done on 05/25/2023. TECHNIQUE: Dynamic renal scintigraphy was performed after intravenous administration of 10 mCi Tc-99m Technetium 99m DTPA 34 mg of furosemide was administered at 30 minutes and continued dynamic imaging of the abdomen/pelvis was obtained for a total of 60 minutes. FINDINGS: Left kidney 61%, previously 51% and the right kidney 39%, previously 49% of total renal uptake. Left Kidney: Normal perfusion. Following administration of furosemide, there is partial progressive washout of radiotracer activity noted with a slight downward slope. Given the presence of large extrarenal dilated pelvis, possibility of partial obstruction is not excluded. Right Kidney: Normal perfusion. Progressive washout of the radiotracer is noted before as well as after administration of Lasix. There is a progressive downward slope noted on the time activity curve. NM/NM renal flow w pharm int IMPRESSION: 1. Differential renal function: Left 61%, Right 39%. Previously 51 and 49% respectively. 2. Left kidney has no definite findings of complete obstruction. Given the presence of large extrarenal dilated pelvis, possibility of partial obstruction is not excluded. Continued follow-up is recommended. 3. Right kidney has non-obstructive parameters after diuresis.
== END ==
LOC: HO.NUCMED 12:52
PROVIDERS: Visit Provider Urology
DX: N13.5 Crossing vessel and stricture of ureter without hydronephrosis (principal); N13.30 Unspecified hydronephrosis
CPT/HCPCS: 78708; A9539; J1940

== ENCOUNTER 2023-12-19 09:36 | Outpatient (AMB) | payer MEDICARE, OTHER, SELFPAY ==
--- NOTE | 2023-12-19 09:37 | A.OFFVIS_ITS ---
Intake Visit Reasons: 2M Follow UP- Lasix renogram(set) Intake Note: Patient presents to the office today as a telehealth appt for a 2 month follow up-lasix renogram. Urology Med:Tamsulosin, Vitamin B6 Antibiotic Allergy: None Blood Thinner: none Allergies No Known Allergies Allergy (Verified 12/19/23 09:37) Medication List - Last Reconciled 12/19/23 by Guido Wolf MD amlodipine 2.5 mg PO DAILY losartan 100 mg PO DAILY pyridoxine (vitamin B6) (Vitamin B-6) 50 mg PO DAILY simvastatin 20 mg PO BEDTIME tamsulosin 0.4 mg PO BEDTIME 90 days HPI Comments Details: Tj Veliz is a very pleasant male. He is a patient of Dr Whaley?. He is seen for the following urologic conditions. 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 Telemedicine Evaluation 15 min Consultation Highfive Nohemy Video attempted Good result from Lasix renogram Will see in February Partial UPJ obstruction on left side Lasix renogram shows good uptake and excretion of both kidneys. Delay in emptying of dilated left renal pelvis likely due to dilatation 09/28 Llaser UPJ incision with AccuSize stent Imaging - 11/28 - Lasix renogram. Good uptake. Left kidney 60%. No evidence of o bstruction. Dilated renal pelvis consistent with prior imaging. Lower urinary tract symptoms Current medications tamsulosin 0.4 mg Recent labs included?a PSA (prostate-specific antigen) 2012 0.6,2016 0.8, 10/23 0.7, 10/24 0.8, 10/26 0.8, 01/27 0.9 Continue Erectile dysfunction: No longer consideration ? He presents today for?for continued evaluation and management of erectile dysfunction.? Symptoms have been present for/since?years ago.? Current treatment includes?Viagra/sildenafil 100 mg ? Treatment side effects include?none.? Prior therapies include?oral medications.? At this time he experiences erections?are partial and adequate for vaginal penetration, that last until ejaculation, CHRISTIANA 8-11 Moderate ED.? Nocturnal erections?do not occur.? Currently they are?in a stable relationship, has a partner who is interested in treatment.? Associated problems? hypertension ?Yes ? diabetes ?No ? dyslipidemia ?Yes ? Overall he is ?satisfied with the current management.? Therapeutic plan includes?12 m review.? PFSH Medical History GERD (gastroesophageal reflux disease) CKD (chronic kidney disease), stage III Pernicious anemia Hypercholesterolemia Hyperlipidemia HTN (hypertension) Weak urinary stream Bladder outlet obstruction 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 Surgical History Hx of cystoscopy History of surgical removal of pilonidal cyst H/O colonoscopy H/O varicose vein stripping H/O hernia repair Social History Patient Tobacco Use Status: Former Tobacco user Tobacco use type: Cigarette Years Smoked: 10 Review of Systems Const Denies chills and Denies fever(s) Card Reports no additional complaints and Denies syncope Resp Denies cough GI Denies abdominal pain and Denies heartburn Reports as per HPI and Denies change in libido Neuro Denies syncope Psych Denies change in libido Endo Denies change in libido Physical Exam Const General: cooperative, healthy appearing, comfortable and no acute distress Orientation/consciousness: patient oriented x3 HEENT Face and sinus: Yes normal facial exam Mouth: moist mucous membranes Neck Neck: Yes normal visual inspection, Yes full ROM and Yes trachea midline Chest Chest palpation & inspection: normal inspection of the chest Resp Effort & Inspection: normal respiratory effort, able to speak in complete sentences and no respiratory distress GI Inspection: Yes normal to inspection Back/Spine/Pelvis Cervical Spine: normal cervical lordosis Thoracic/Lumbar Spine: thoracic and lumbar spine normal to inspection Skin General skin exam: no rashes or lesions noted Neuro General: patient oriented x3, gait normal, tone normal and moves all extremities Extrem General: Yes normal to inspection and Yes capillary refill normal Telehealth Telehealth Telehealth Platform: [facility] Location of provider rendering services: practice address Location of patient: address on file Patient Identification confirmed using: Name, : Yes Telehealth method: video Patient verbally consented to treatment: Yes Patient verbally consented to billing insurance company: Yes Patient informed of any privacy concerns related to visit: Yes Minutes spent on Phone/Video with Pt.: 15 Assessment & Plan Assessment & Plan (1) Hydroureteronephrosis: Code(s): N13.30 - Unspecified hydronephrosis Category: Medical Plan February Patient Instructions: Imaging studies, laboratory and physical exam results were discussed and reviewed in detail. No major barriers to patient understanding were identified. An opportunity to ask questions regarding the treatment plan was provided. All questions were answered. The patient expressed understanding and agreement with the above treatment plan. The patient is aware they should contact our office by phone for worsening of their current condition or the appearance of new urologic symptoms. Compliance is encouraged with any medications and followup testing that is ordered. It is a privilege to participate in the urologic care of your patient. If you have any questions or concerns regarding treatment for the above conditions, or other urologic issues, please do not hesitate to contact me. The office telephone contact is [phone]. This note is constructed using voice recognition software. While every effort has been made to ensure accuracy collet driller errors may have been included. Yours sincerely, Dr Guido Wolf MD, [facility] - Urology Providers of Expert, Compassionate Care for the Genitourinary System Coding Level of Care Code Tele Est Pt Level 3 (87128) Diagnoses Hydroureteronephrosis N13.30
== END 2023-12-19 10:53 | disposition home or self-care (01) ==
PROVIDERS: Visit Provider Urology
DX: N13.30 Unspecified hydronephrosis (principal)
CPT/HCPCS: 99213

== ENCOUNTER → 2023-12-19 09:36 | Outpatient (BNVA) | payer MEDICARE, OTHER, SELFPAY | PROVIDERS: Visit Provider Urology ==

== ENCOUNTER 2024-01-31 11:46 | Outpatient (REF) | payer MEDICARE, OTHER, SELFPAY ==
[2024-01-31 12:27] LABS: MANUAL DIFF FLAG NO
[2024-01-31 14:02] LABS: Basophils Absolute Auto 0.1 X10*3/uL (0.0-0.2); Basophils Percent Auto 1.1 % (0-2); Eosinophils Absolute Auto 0.2 X10*3/uL (0.0-0.4); Eosinophils Percent Auto 4.1 % (0-4); Hematocrit 35.8 % (42.0-52.0); Hemoglobin 11.4 g/dl (14.0-18.0); Imm Gran Abs Auto 0.01 X10*3/uL (0.00-0.03); Imm Gran Pct Auto 0.2 % (0.0-0.4); Lymphocytes Absolute Auto 1.1 X10*3/uL (1.2-4.9); Lymphocytes Percent Auto 23.9 % (20-40); Mean Corpuscular HGB Conc 31.8 g/dl (31.0-36.0); Mean Corpuscular Hemoglobin 27.5 pg (27.0-33.0); Mean Corpuscular Volume 86.5 fL (80.0-98.0); Monocytes Absolute Auto 0.5 X10*3/uL (0.1-1.2); Monocytes Percent Auto 11.1 % (2-11); Neutrophils Absolute Auto 2.8 x10*3/uL (2.0-8.3); Neutrophils Percent Auto 59.6 % (45-73); Platelet Count 249 X10*3/uL (160-400); Red Blood Count 4.14 X10*6/uL (4.60-5.80); Red Cell Distribution Width 13.6 % (11.0-16.0); White Blood Count 4.6 X10*3/uL (4.8-10.8)
[2024-01-31 14:37] LABS: Parathyroid Hormone Intact 64.2 pg/mL (8.7-77.1)
[2024-01-31 14:47] LABS: Anion Gap 14 (12-20); Blood Urea Nitrogen 19 mg/dL (9-16); Calcium 9.6 mg/dL (8.4-10.2); Carbon Dioxide 26 mmol/L (22-29); Chloride 106 mmol/L (96-108); Estimated Glomerular Filt Rate 54; Potassium 4.5 mmol/L (3.3-5.1); Sodium 141 mmol/L (135-145)
[2024-01-31 14:52] LABS: Vitamin D 25-OH Total 49.1 ng/mL (>30)
[2024-01-31 15:02] LABS: Creatinine Urine 32.85 mg/dL; Microalbumin Urine < 5.0 mg/L; Total Protein Urine Random < 7 mg/dL (<12)
[2024-01-31 15:12] LABS: Prostate Specific Antigen 1.03 ng/mL (<0.05-4.0)
== END 2024-01-31 11:47 | disposition home or self-care (01) ==
LOC: HO.LAB 11:46
PROVIDERS: PCP Internal Medicine; Referring Provider Student in an Organized Health Care Education/Training Program; Visit Provider Urology
DX: N18.31 Chronic kidney disease, stage 3a (principal); Q62.39 Other obstructive defects of renal pelvis and ureter; N32.0 Bladder-neck obstruction; Z12.5 Encounter for screening for malignant neoplasm of prostate
CPT/HCPCS: 36415; 80051; 82043; 82306; 82310; 82565; 82570; 83970; 84153; 84156; 84520; 85025

== ENCOUNTER 2024-02-06 08:01 | Outpatient (AMB) | payer MEDICARE, OTHER, SELFPAY ==
--- NOTE | 2024-02-06 08:10 | A.OFFVIS_ITS ---
Intake Visit Reasons: 1Y Follow Up-PVR/PSA(set) Intake Note: Patient is Present for Follow Up PSA Urology Medication: Tamsulosin, Vitamin B6 Antibiotic Allergies:None Blood Thinners: None Recent PSA: 01/31/24- PSA 1.03 Patient states he is here for follow up and states no issues with Voiding no discomfort or pain. Mold Insert Changer Required: No Accompanied by: Self / Same As Patient Allergies No Known Allergies Allergy (Verified 02/06/24 08:15) Medication List - Last Reconciled 02/06/24 by Guido Wolf MD amlodipine 2.5 mg PO DAILY losartan 100 mg PO DAILY pyridoxine (vitamin B6) (Vitamin B-6) 50 mg PO DAILY simvastatin 20 mg PO BEDTIME tamsulosin 0.4 mg PO BEDTIME 90 days HPI Comments Details: Tj Veliz is a very pleasant male. He is a patient of Dr Whaley?. He is seen for the following urologic conditions. 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 Delay in emptying of dilated left renal pelvis likely due to dilatation 09/28 Laser UPJ incision with AccuSize stent Imaging - 11/28 - Lasix renogram. Good uptake. Left kidney 60%. No evidence of obstruction. Dilated renal pelvis consistent with prior imaging. Lower urinary tract symptoms Current medications tamsulosin 0.4 mg Recent labs included?a PSA (prostate-specific antigen) 2012 0.6,2016 0.8, 10/23 0.7, 10/24 0.8, 10/26 0.8, 01/27 0.9 Continue Erectile dysfunction: No longer consideration ? He presents today for?for continued evaluation and management of erectile dysfunction.? Symptoms have been present for/since?years ago.? Current treatment includes?Viagra/sildenafil 100 mg ? Treatment side effects include?none.? Prior therapies include?oral medications.? At this time he experiences erections?are partial and adequate for vaginal penetration, that last until ejaculation, CHRISTIANA 8-11 Moderate ED.? Nocturnal erections?do not occur.? Currently they are?in a stable relationship, has a partner who is interested in treatment.? Associated problems? hypertension ?Yes ? diabetes ?No ? dyslipidemia ?Yes ? Overall he is ?satisfied with the current management.? Therapeutic plan includes?12 m review.? PFSH Medical History GERD (gastroesophageal reflux disease) CKD (chronic kidney disease), stage III Pernicious anemia Hypercholesterolemia Hyperlipidemia HTN (hypertension) Weak urinary stream Bladder outlet obstruction 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 Surgical History Hx of cystoscopy History of surgical removal of pilonidal cyst H/O colonoscopy H/O varicose vein stripping H/O hernia repair Social History Patient Tobacco Use Status: Former Tobacco user Tobacco use type: Cigarette Years Smoked: 10 Review of Systems Const Denies chills and Denies fever(s) Card Reports no additional complaints and Denies syncope Resp Denies cough GI Denies abdominal pain and Denies heartburn Reports as per HPI and Denies change in libido Neuro Denies syncope Psych Denies change in libido Endo Denies change in libido Physical Exam Const General: cooperative, healthy appearing, comfortable and no acute distress Orientation/consciousness: patient oriented x3 HEENT Face and sinus: Yes normal facial exam Mouth: moist mucous membranes Neck Neck: Yes normal visual inspection, Yes full ROM and Yes trachea midline Chest Chest palpation & inspection: normal inspection of the chest Resp Effort & Inspection: normal respiratory effort, able to speak in complete sentences and no respiratory distress GI Inspection: Yes normal to inspection Back/Spine/Pelvis Cervical Spine: normal cervical lordosis Thoracic/Lumbar Spine: thoracic and lumbar spine normal to inspection Skin General skin exam: no rashes or lesions noted Neuro General: patient oriented x3, gait normal, tone normal and moves all extremities Extrem General: Yes normal to inspection and Yes capillary refill normal Assessment & Plan Assessment & Plan (1) Bladder outlet obstruction: Code(s): N32.0 - Bladder-neck obstruction Category: Medical (2) UPJ obstruction, acquired: Code(s): N13.5 - Crossing vessel and stricture of ureter without hydronephrosis Category: Medical Plan One year follow-up Lasix renogram Orders: Orders NM renal flow w pharm int 1 Year N13.30 - Unspecified hydronephrosis, N13.5 - Crossing vessel and stricture of ureter without hydronephrosis Patient Instructions: Imaging studies, laboratory and physical exam results were discussed and reviewed in detail. No major barriers to patient understanding were identified. An opportunity to ask questions regarding the treatment plan was provided. All questions were answered. The patient expressed understanding and agreement with the above treatment plan. The patient is aware they should contact our office by phone for worsening of their current condition or the appearance of new urologic symptoms. Compliance is encouraged with any medications and followup testing that is ordered. It is a privilege to participate in the urologic care of your patient. If you have any questions or concerns regarding treatment for the above conditions, or other urologic issues, please do not hesitate to contact me. The office telephone contact is [phone]. This note is constructed using voice recognition software. While every effort has been made to ensure accuracy director of people errors may have been included. Yours sincerely, Dr Guido Wolf MD, [facility] - Urology Providers of Expert, Compassionate Care for the Genitourinary System Coding Level of Care Code Est Pt Level 3 (58245) Diagnoses Bladder outlet obstruction N32.0 UPJ obstruction, acquired N13.5
== END 2024-02-06 08:51 | disposition home or self-care (01) ==
PROVIDERS: PCP Internal Medicine; Visit Provider Urology
DX: N32.0 Bladder-neck obstruction (principal); N13.5 Crossing vessel and stricture of ureter without hydronephrosis
CPT/HCPCS: 99213

== ENCOUNTER → 2024-02-06 08:01 | Outpatient (BNVA) | payer MEDICARE, OTHER, SELFPAY | PROVIDERS: PCP Internal Medicine; Visit Provider Urology | DX: N32.0 Bladder-neck obstruction (principal); N13.5 Crossing vessel and stricture of ureter without hydronephrosis; N52.9 Male erectile dysfunction, unspecified | CPT/HCPCS: 99212 ==

== ENCOUNTER → 2025-01-21 10:35 | Outpatient (REF) | payer MEDICARE, OTHER, SELFPAY ==
--- NOTE | ~2025-01-21 | NM_ITS ---
EXAMINATION: NM KIDNEY FLOW FUNCTION WITH RX HISTORY: N13.30 - Unspecified hydronephrosis. TECHNIQUE: A renogram and renal scan were performed following the intravenous sedation of 10 mCi technetium 99m-DTPA. The patient also received 36 mg IV Lasix over 30 minutes. COMPARISON: Comparison is made with the prior examination dated 11/27/2024. FINDINGS: Again seen is symmetric blood flow to both kidneys. The estimated split function is 52.2% on the left and 47% on the right. On the right, there is a lesion into a nondilated system with washout after Lasix administration. On the left, again seen is a dilated collecting system with accumulation of activity in a dilated renal pelvis. There is partial washout after the administration of intravenous Lasix. Findings are suggestive of partial obstruction. NM/NM renal flow w pharm int IMPRESSION: Stable examination demonstrating suggestive of partial obstruction on the left. Normal function on the right. Electronically signed by: Henry Arango MD 01/21/2025 12:31 PM EDT
--- OUTSIDE RECORDS SUMMARY | 2025-01-21 14:01 | XMS_ITS | Encounter Summary ---
Author Organization [facility] Address [address] [place] [address] Phone Care Team Providers Care Industrial Eng Name Role Phone Jono Lezama MD Primary Care Provider [phone] Encounter Details Date Type Department Care Team (Late st Contact Info) Description 07/17/2023 Documentation Only [facility] [address] [place] [address] Doris Freedman [address] [place] [phone] Social History Tobacco Use Types Packs/Day Years Used Date Smoking Tobacco: Former Cigarettes Sex and Gender Information Value Date Recorded Sex Assigned at Not on file Legal Sex Male 8:15 AM EDT Gender Identity Not on file Sexual Orientation Not on file documented as of this encounter Plan of Treatment Upcoming Encounters Date Type Department Care Team (Late st Contact Info) Description 01/27/2025 2:30 PM EDT Office Visit [facility] [address] [place] [address] Jose Mendez MD [address] [place] [address] [place] [address] documented as of this encounter Visit Diagnoses Not on filedocumented in this encounter Care Teams Industrial Eng Relationship Specialty Start Date End Date Jono Lezama MD [address] [place], [place] [phone] PCP - General Internal Medicine 04/04/23 documented as of this encounter
--- OUTSIDE RECORDS SUMMARY | 2025-01-21 14:01 | XMS_ITS | Encounter Summary ---
Author Organization [facility] Address [address] [place] [address] Phone Care Team Providers Care Federal Judge Name Role Phone Jono Lezama MD Primary Care Provider [phone] Encounter Details Date Type Department Care Team (Late st Contact Info) Description 01/24/2024 Documentation Only [facility] [address] [place] [address] Doris Freedman [address] [place] [phone] Social History Tobacco Use Types Packs/Day Years [...] Visit [facility] [address] [place] [address] Jose Mendez MD [address] [place] [address] [place] [address] documented as of this encounter Visit Diagnoses Not on filedocumented in this encounter Care Teams Federal Judge Relationship Specialty Start Date End Date Jono Lezama MD [address] [place], [place] [phone] PCP - General Internal Medicine 04/04/23 documented as of this encounter
--- OUTSIDE RECORDS SUMMARY | 2025-01-21 14:01 | XMS_ITS | Encounter Summary ---
Author Organization [facility] Address [address] [place] [address] Phone Care Team Providers Care Tumbling Barrel Painter Name Role Phone Jono Lezama MD Primary Care Provider [phone] Encounter Details Date Type Department Care Team (Late st Contact Info) Description 07/17/2023 Documentation Only [facility] [address] [place] [address] Doris Freedman [address] [place] [phone] Social History Tobacco Use Types Packs/Day Years [...] [facility] [address] [place] [address] Jose Mendez MD [address] [place] [address] [place] [address] documented as of this encounter Visit Diagnoses Not on filedocumented in this encounter Care Teams Tumbling Barrel Painter Relationship Specialty Start Date End Date Jono Lezama MD [address] [place], [place] [phone] PCP - General Internal Medicine 04/04/23 documented as of this encounter
--- OUTSIDE RECORDS SUMMARY | 2025-01-21 14:01 | XMS_ITS | Encounter Summary ---
Author Organization [facility] Address [address] [place] [address] Phone Care Team Providers Care Extension Service Agent Name Role Phone Jono Lezama MD Primary Care Provider [phone] Encounter Details Date Type Department Care Team (Late st Contact Info) Description 04/19/2023 Documentation Only [facility] [address] [place] [address] [place], [place] [address] [place] [phone] Social History Tobacco Use Types Packs/Day Years Used Date Smoking Tobacco: Never Assessed Sex and Gender Information Value Date Recorded Sex Assigned at Not on file Legal Sex Male 8:15 AM EDT Gender Identity Not on file Sexual Orientation Not on file documented as of this encounter Plan of Treatment Upcoming Encounters Date Type Department Care Team (Late st Contact Info) Description 01/27/2025 2:30 PM EDT Office Visit [facility] [address] [place] [address] Jose Mendez MD [address] [place] [address] [place] [address] documented as of this encounter Visit Diagnoses Not on filedocumented in this encounter Care Teams Extension Service Agent Relationship Specialty Start Date End Date Jono Lezama MD [address] [place] [id number] PCP - General Internal Medicine 04/04/23 documented as of this encounter
--- OUTSIDE RECORDS SUMMARY | 2025-01-21 14:01 | XMS_ITS | Encounter Summary ---
Author Organization [facility] Address [address] [place] [address] Phone Care Team Providers Care Histologic Aide Name Role Phone Jono Lezama MD Primary Care Provider [phone] Encounter Details Date Type Department Care Team (Late st Contact Info) Description 07/18/2023 Documentation Only [facility] [address] [place] [address] Doris Freedman [address] [place] [phone] Social History Tobacco Use Types Packs/Day Years [...] [facility] [address] [place] [address] Jose Mendez MD [address] [place] [address] [place] [address] documented as of this encounter Visit Diagnoses Not on filedocumented in this encounter Care Teams Histologic Aide Relationship Specialty Start Date End Date Jono Lezama MD [address] [place], [place] [phone] PCP - General Internal Medicine 04/04/23 documented as of this encounter
--- OUTSIDE RECORDS SUMMARY | 2025-01-21 14:01 | XMS_ITS | Encounter Summary ---
Author Organization [facility] Address [address] [place] [address] Phone Care Team Providers Care Mainframe Systems Administrator Name Role Phone Jono Lezama MD Primary Care Provider [phone] Encounter Details Date Type Department Care Team (Late st Contact Info) Description 07/17/2023 Documentation Only [facility] [address] [place] [address] Doris Freedman [address] [place] [phone] Social History Tobacco Use Types Packs/Day Years [...] Visit [facility] [address] [place] [address] Jose Mendez MD [address] [place] [address] [place] [address] documented as of this encounter Visit Diagnoses Not on filedocumented in this encounter Care Teams Mainframe Systems Administrator Relationship Specialty Start Date End Date Jono Lezama MD [address] [place], [place] [phone] PCP - General Internal Medicine 04/04/23 documented as of this encounter
--- OUTSIDE RECORDS SUMMARY | 2025-01-21 14:01 | XMS_ITS | Encounter Summary ---
Author Organization [facility] Address [address] [place] [address] Phone Care Team Providers Care Anesthesiologist Attending Name Role Phone Jono Lezama MD Primary Care Provider [phone] Encounter Details Date Type Department Care Team (Late st Contact Info) Description 01/24/2024 Documentation Only [facility] [address] [place] [address] Doris Freedman [address] [place] [phone] Social History Tobacco Use Types Packs/Day Years [...] Visit [facility] [address] [place] [address] Jose Mendez MD [address] [place] [address] [place] [address] documented as of this encounter Visit Diagnoses Not on filedocumented in this encounter Care Teams Anesthesiologist Attending Relationship Specialty Start Date End Date oJno Lezama MD [address] [place], [place] [phone] PCP - General Internal Medicine 04/04/23 documented as of this encounter
--- OUTSIDE RECORDS SUMMARY | 2025-01-21 14:01 | XMS_ITS | Encounter Summary ---
Author Organization [facility] Address [address] [place] [address] Phone Care Team Providers Care Criminal Intelligence Analyst Name Role Phone Jono Lezama MD Primary Care Provider [phone] Encounter Details Date Type Department Care Team (Late Contact Info) Description 04/25/2023 Documentation Only [facility] [address] [place] [address] Catherine [place], [place] [address] [place] [phone] Social History Tobacco Use Types Packs/Day Years [...] Visit [facility] [address] [place] [address] Jose Mnedez MD [address] [place] [address] [place] [address] documented as of this encounter Visit Diagnoses Not on filedocumented in this encounter Care Teams Criminal Intelligence Analyst Relationship Specialty Start Date End Date Jono Lezama MD [address] [place] [address] [id number] PCP - General Internal Medicine 04/04/23 documented as of this encounter
--- OUTSIDE RECORDS SUMMARY | 2025-01-21 14:02 | XMS_ITS | Encounter Summary ---
Author Organization [facility] Address [address] [place] [address] Phone Care Team Providers Care Cash Manager Name Role Phone Jono Lezama MD Primary Care Provider [phone] Encounter Details Date Type Department Care Team (Late st Contact Info) Description 01/25/2024 Documentation Only [facility] [address] [place] [address] Doris Freedman [address] [place] [phone] Social History Tobacco Use Types Packs/Day Years [...] Visit [facility] [address] [place] [address] Jose Mendez MD [address] [place] [address] [place] [address] documented as of this encounter Visit Diagnoses Not on filedocumented in this encounter Care Teams Cash Manager Relationship Specialty Start Date End Date Jono Lezama MD [address] [place], [place] [phone] PCP - General Internal Medicine 04/04/23 documented as of this encounter
--- OUTSIDE RECORDS SUMMARY | 2025-01-21 14:02 | XMS_ITS | Encounter Summary ---
Author Organization [facility] Address [address] [place] [address] Phone Care Team Providers Care Corporate Legal Secretary Name Role Phone Jono Lezama MD Primary Care Provider Encounter Details Date Type Department Care Team (Late st Contact Info) Description 01/25/2024 Documentation Only [facility] [address] [place] [address] Doris Freedman [address] [place] [phone] Social History Tobacco Use Types Packs/Day Years [...] Visit [facility] [address] [place] [address] Jose Mendez MD [address] [place] [address] [place] [address] documented as of this encounter Visit Diagnoses Not on filedocumented in this encounter Care Teams Corporate Legal Secretary Relationship Specialty Start Date End Date Jono Lezama MD [address] [place], [place] [phone] PCP - General Internal Medicine 04/04/23 documented as of this encounter
--- OUTSIDE RECORDS SUMMARY | 2025-01-21 14:02 | XMS_ITS | Encounter Summary ---
Author Organization [facility] Address [address] [place] [address] Phone Care Team Providers Care Duck Bill Operator Name Role Phone Jono Lezama MD Primary Care Provider [phone] Encounter Details Date Type Department Care Team (Late st Contact Info) Description 01/25/2024 Documentation Only [facility] [address] [place] [address] Doris Freedman [address] [place] [phone] Social History Tobacco Use Types Packs/Day Years [...] Visit [facility] [address] [place] [address] Jose Mendez MD [address] [place] [address] [place] [address] documented as of this encounter Visit Diagnoses Not on filedocumented in this encounter Care Teams Duck Bill Operator Relationship Specialty Start Date End Date Jono Lezama MD [address] [place], [place] [phone] PCP - General Internal Medicine 04/04/23 documented as of this encounter
--- OUTSIDE RECORDS SUMMARY | 2025-01-21 14:02 | XMS_ITS | Encounter Summary ---
Author Organization [facility] Address [address] [place] [address] Phone Care Team Providers Care Rubber Trimmer Name Role Phone Jono Lezama MD Primary Care Provider [phone] Encounter Details Date Type Department Care Team (Late st Contact Info) Description 07/17/2023 Documentation Only [facility] [address] [place] [address] Dorsi Freedman [address] [place] [phone] Social History Tobacco Use Types Packs/Day Years [...] Visit [facility] [address] [place] [address] Jose Mendez MD [address] [place] [address] [place] [address] documented as of this encounter Visit Diagnoses Not on filedocumented in this encounter Care Teams Rubber Trimmer Relationship Specialty Start Date End Date Jono Lezama MD [address] [place], [place] [phone] PCP - General Internal Medicine 04/04/23 documented as of this encounter
--- OUTSIDE RECORDS SUMMARY | 2025-01-21 14:02 | XMS_ITS | Encounter Summary ---
Author Organization [facility] Address [address] [place] [address] Phone Care Team Providers Care Art History Instructor Name Role Phone Jono Lezama MD Primary Care Provider [phone] Encounter Details Date Type Department Care Team (Late st Contact Info) Description 07/17/2023 Documentation Only [facility] [address] [place] [address] Doris Freedman [address] [place] [phone] Social History Tobacco Use Types Packs/Day Years [...] Visit [facility] [address] [place] [address] Jose Mendez MD [address] [place] [address] [place] [address] documented as of this encounter Visit Diagnoses Not on filedocumented in this encounter Care Teams Art History Instructor Relationship Specialty Start Date End Date Jono Lezama MD [address] [place], [place] [phone] PCP - General Internal Medicine 04/04/23 documented as of this encounter
--- OUTSIDE RECORDS SUMMARY | 2025-01-21 14:02 | XMS_ITS | Encounter Summary ---
Author Organization [facility] Address [address] [place] [address] Phone Care Team Providers Care Real Estate Administrator Name Role Phone Jono Lezama MD Primary Care Provider [phone] Encounter Details Date Type Department Care Team (Late st Contact Info) Description 07/18/2023 Documentation Only [facility] [address] [place] [address] Doris Freedman [address] [place] [phone] Social History Tobacco Use Types Packs/Day Years [...] Visit [facility] [address] [place] [address] Jose Mendez MD [address] [place] [address] [place] [address] documented as of this encounter Visit Diagnoses Not on filedocumented in this encounter Care Teams Real Estate Administrator Relationship Specialty Start Date End Date Jono Lezama MD [address] [place], [place] [phone] PCP - General Internal Medicine 04/04/23 documented as of this encounter
--- OUTSIDE RECORDS SUMMARY | 2025-01-21 14:02 | XMS_ITS | Clinical Summary ---
Author Organization [facility], Address [address] [place] [address] [place] [address] Phone Care Team Providers Care Calculation Clerk Name Role Phone Jono Lezama MD Primary Care Provider [phone] Allergies No known active allergies Medications amLODIPine (NORVASC) 2.5 MG tablet Take 2.5 mg by mouth every morning 05/04/2023 Active losartan (COZAAR) 50 MG tablet Take 50 mg by mouth 1 (one) time each day Active Active Problems Problem Noted Date Diagnosed Date Chronic kidney disease, stage 2 (mild) Pernicious anemia 07/17/2023 Hypertension 07/17/2023 Hyperlipidemia 07/17/2023 Hydroureteronephrosis Ureteropelvic junction obstruction Stone in kidney Poor stream of urine Other abnormal clinical findings Overview (01/25/2024): lower urinary tract symptoms Hypercholesterolemia Benign prostatic hyperplasia Immunizations Immunization Administration Dates Next Due Influenza, Unspecified 01/31/2023,01/31/2023, Moderna SARS-COV-2 03/23/2021,08/19/2020, 021 Pneumococcal Conjugate 13-Valent 11/23/2018 Pneumococcal Polysaccharide 08/18/2022 Shingrix 02/03/2023,08/18/2022 Tdap 02/17/2015 Family History Medical History Relation Comments Anemia Father Prostate cancer Father Anemia Mother Anemia Sister Relation Status Comments Father Mother Sister Social History Tobacco Use Types Packs/Day Years Used Date Smoking Tobacco: Former Cigarettes Sex and Gender Information Value Date Recorded Sex Assigned at Not on file Legal Sex Male 8:15 AM EDT Gender Identity Not on file Sexual Orientation Not on file Last Filed Vital Signs Vital Sign Reading Time Taken Comments Blood Pressure 126/72 07/22/2024 1:33 PM EDT Pulse 53 04/04/2023 3:52 PM EST Temperature - - Respiratory Rate - - Oxygen Saturation - - Inhaled Oxygen Concentration - - Weight 68.5 kg (151 lb) 07/18/2023 4:53 PM EDT Height - - Body Mass Index - - Plan of Treatment Upcoming Encounters Date Type Department Care Team (Late st Contact Info) Description 01/27/2025 2:30 PM EDT Office Visit [facility], [address] [facility] [place] [address] Jose Mendez MD [address] [place] [phone] Health Maintenance Due Date Last Done Comments Influenza Vaccine (#1) 2025 , 01/31/2023, 01/31/2023, Additional history exists Pneumococcal Vaccine: 50+ Years Completed 08/18/2022, 11/23/2018 Hepatitis B Vaccine Aged Out No longe r eligible based on patient's age to complete this topic Insurance Medicare [facility] Care Teams Calculation Clerk Relationship Specialty Start Date End Date Jono Lezama MD [address] [place] [address] PCP - General Internal Medicine 04/04/23
--- OUTSIDE RECORDS SUMMARY | 2025-01-21 14:02 | XMS_ITS | Encounter Summary ---
Author Organization [facility] Address [address] [place] [address] Phone Care Team Providers Care Circulation Sales Representative Name Role Phone Jono Lezama MD Primary Care Provider [phone] Encounter Details Date Type Department Care Team (Late st Contact Info) Description 07/22/2024 Documentation Only [facility] [address] [place] [address] Doris Freedman [address] [place] [phone] Social History Tobacco Use Types Packs/Day Years [...] Visit [facility] [address] [place] [address] Jose Mendez MD [address] [place] [address] [place] [address] documented as of this encounter Visit Diagnoses Not on filedocumented in this encounter Care Teams Circulation Sales Representative Relationship Specialty Start Date End Date Jono Lezama MD [address] [place], [place] [phone] PCP - General Internal Medicine 04/04/23 documented as of this encounter
--- OUTSIDE RECORDS SUMMARY | 2025-01-21 14:02 | XMS_ITS | Encounter Summary ---
Author Organization [facility] Address [address] [place] [address] Phone Care Team Providers Care Electric Motor Analyst Name Role Phone Jono Lezama MD Primary Care Provider Encounter Details Date Type Department Care Team (Late st Contact Info) Description 08/20/2024 Documentation Only [facility] [address] [place] [address] Doris Freedman [address] [place] [phone] Social History Tobacco Use Types Packs/Day Years [...] Visit [facility] [address] [place] [address] Jose Mendez MD [address] [place] [address] [place] [address] documented as of this encounter Visit Diagnoses Not on filedocumented in this encounter Care Teams Electric Motor Analyst Relationship Specialty Start Date End Date Jono Lezama MD [address] [place], [place] [id number] PCP - General Internal Medicine 04/04/23 documented as of this encounter
--- OUTSIDE RECORDS SUMMARY | 2025-01-21 14:02 | XMS_ITS | Encounter Summary ---
Author Organization [facility] Address [address] [place] [address] Phone Care Team Providers Care Security Business Analyst Name Role Phone Jono Lezama MD Primary Care Provider [phone] Encounter Details Date Type Department Care Team (Late st Contact Info) Description 07/22/2024 Documentation Only [facility] [address] [place] [address] Doris Freedman [address] [place] [phone] Social History Tobacco Use Types Packs/Day Years [...] Visit [facility] [address] [place] [address] Jose Mendez MD [address] [place] [address] [place] [address] documented as of this encounter Visit Diagnoses Not on filedocumented in this encounter Care Teams Security Business Analyst Relationship Specialty Start Date End Date Jono Lezama MD [address] [place], [place] [phone] PCP - General Internal Medicine 04/04/23 documented as of this encounter
--- OUTSIDE RECORDS SUMMARY | 2025-01-21 14:02 | XMS_ITS | Encounter Summary ---
Author Organization [facility] Address [address] [place] [address] Phone Care Team Providers Care Manager Sterile Name Role Phone Jono Lezama MD Primary Care Provider [phone] Encounter Details Date Type Department Care Team (Late st Contact Info) Description 08/20/2024 Documentation Only [facility] [address] [place] [address] Doris Freedman [address] [place] [phone] Social History Tobacco Use Types Packs/Day Years [...] Visit [facility] [address] [place] [address] Jose Mendez MD [address] [place] [address] [place] [address] documented as of this encounter Visit Diagnoses Not on filedocumented in this encounter Care Teams Manager Sterile Relationship Specialty Start Date End Date Jono Lezama MD [address] [place], [place] [phone] PCP - General Internal Medicine 04/04/23 documented as of this encounter
--- OUTSIDE RECORDS SUMMARY | 2025-01-21 14:02 | XMS_ITS | Encounter Summary ---
Author Organization [facility] Address [address] [place] [address] Phone Care Team Providers Care Online Journalist Name Role Phone Jono Lezama MD Primary Care Provider [phone] Encounter Details Date Type Department Care Team (Late st Contact Info) Description 07/18/2023 Documentation Only [facility] [address] [place] [address] Doris Freedman [address] [place] [phone] Social History Tobacco Use Types Packs/Day Years [...] Visit [facility] [address] [place] [address] Jose Mendez MD [address] [place] [address] [place] [address] documented as of this encounter Visit Diagnoses Not on filedocumented in this encounter Care Teams Online Journalist Relationship Specialty Start Date End Date Jono Lezama MD [address] [place], [place] [phone] PCP - General Internal Medicine 04/04/23 documented as of this encounter
--- OUTSIDE RECORDS SUMMARY | 2025-01-21 14:02 | XMS_ITS | Encounter Summary ---
Author Organization [facility] Address [address] [place] [address] Phone Care Team Providers Care Platform Architect Name Role Phone Jono Lezama MD Primary Care Provider [phone] Encounter Details Date Type Department Care Team (Late st Contact Info) Description 08/20/2024 Documentation Only [facility] [address] [place] [address] Doris Freedman [address] [place] [phone] Social History Tobacco Use Types Packs/Day Years [...] Visit [facility] [address] [place] [address] Jose Mendez MD [address] [place] [address] [place] [address] documented as of this encounter Visit Diagnoses Not on filedocumented in this encounter Care Teams Platform Architect Relationship Specialty Start Date End Date Jono Lezama MD [address] [place], [place] [phone] PCP - General Internal Medicine 04/04/23 documented as of this encounter
--- OUTSIDE RECORDS SUMMARY | 2025-01-21 14:02 | XMS_ITS | Encounter Summary ---
Author Organization [facility] Address [address] [place] [address] Phone Care Team Providers Care Spool Sorter Name Role Phone Jono Lezama MD Primary Care Provider [phone] Encounter Details Date Type Department Care Team (Late st Contact Info) Description 09/29/2022 Documentation Only [facility] [address] [place] [address] Wilfrid Whaley MD [address] [place] [address] Social History Tobacco Use Types Packs/Day Years [...] Visit [facility] [address] [place] [address] Jose Mendez MD [address] [place] [address] [place] [address] documented as of this encounter Visit Diagnoses Not on filedocumented in this encounter Care Teams Spool Sorter Relationship Specialty Start Date End Date Jono Lezama MD [address] [place], [place] [phone] PCP - General Internal Medicine 04/04/23 documented as of this encounter
--- OUTSIDE RECORDS SUMMARY | 2025-01-21 14:02 | XMS_ITS | Encounter Summary ---
Author Organization [facility] Address [address] [place] [address] Phone Care Team Providers Care Java Analyst Name Role Phone Jono Lezama MD Primary Care Provider [phone] Encounter Details Date Type Department Care Team (Late st Contact Info) Description 01/25/2024 Documentation Only [facility] [address] [place] [address] Doris Freedman [address] [place] [phone] Social History Tobacco Use Types Packs/Day Years [...] Visit [facility] [address] [place] [address] Jose Mendez MD [address] [place] [address] [place] [address] documented as of this encounter Visit Diagnoses Not on filedocumented in this encounter Care Teams Java Analyst Relationship Specialty Start Date End Date Jono Lezama MD [address] [place], [place] [phone] PCP - General Internal Medicine 04/04/23 documented as of this encounter
--- OUTSIDE RECORDS SUMMARY | 2025-01-21 14:02 | XMS_ITS | Encounter Summary ---
Author Organization [facility] Address [address] [place] [address] Phone Care Team Providers Care Manager Mutual Fund Name Role Phone Jono Lezama MD Primary Care Provider [phone] Encounter Details Date Type Department Care Team (Late st Contact Info) Description 07/22/2024 Documentation Only [facility] [address] [place] [address] Doris Freedman [address] [place] [phone] Social History Tobacco Use Types Packs/Day Years [...] Visit [facility] [address] [place] [address] Jose Mendez MD [address] [place] [address] [place] [address] documented as of this encounter Visit Diagnoses Not on filedocumented in this encounter Care Teams Manager Mutual Fund Relationship Specialty Start Date End Date Jono Lezama MD [address] [place], [place] [phone] PCP - General Internal Medicine 04/04/23 documented as of this encounter
--- OUTSIDE RECORDS SUMMARY | 2025-01-21 14:02 | XMS_ITS | Encounter Summary ---
Author Organization [facility] Address [address] [place] [address] Phone Care Team Providers Care Contract Administration Coordinator Name Role Phone Jono Lezama MD Primary Care Provider Encounter Details Date Type Department Care Team (Late st Contact Info) Description 08/20/2024 Documentation Only [facility] [address] [place] [address] Doris Freedman [address] [place] [phone] Social History Tobacco Use Types Packs/Day Years [...] Visit [facility] [address] [place] [place] [address] Jose Mendez MD [address] [place] [address] [place] [address] documented as of this encounter Visit Diagnoses Not on filedocumented in this encounter Care Teams Contract Administration Coordinator Relationship Specialty Start Date End Date Jono Lezama MD [address] [place], [place] [phone] PCP - General Internal Medicine 04/04/23 documented as of this encounter
--- OUTSIDE RECORDS SUMMARY | 2025-01-21 14:02 | XMS_ITS | Encounter Summary ---
Author Organization [facility] Address [address] [place] [address] Phone Care Team Providers Care Window Systems Administrator Name Role Phone Jono Lezama MD Primary Care Provider [phone] Encounter Details Date Type Department Care Team (Late st Contact Info) Description 07/22/2024 Documentation Only [facility] [address] [place] [address] Doris Freedman [address] [place] [phone] Social History Tobacco Use Types Packs/Day Years [...] [facility] [address] [place] [address] Jose Mendez MD [address] [place] [address] [place] [address] documented as of this encounter Visit Diagnoses Not on filedocumented in this encounter Care Teams Window Systems Administrator Relationship Specialty Start Date End Date Jono Lezama MD [address] [place], [place] [phone] PCP - General Internal Medicine 04/04/23 documented as of this encounter
== END ==
LOC: HO.NUCMED 10:35
PROVIDERS: PCP Internal Medicine; Visit Provider Urology
DX: N13.30 Unspecified hydronephrosis (principal); N13.5 Crossing vessel and stricture of ureter without hydronephrosis
CPT/HCPCS: 78708; A9539; J1938

== ENCOUNTER → 2025-01-21 10:37 | Outpatient (BNV) | payer MEDICARE, OTHER, SELFPAY | PROVIDERS: PCP Internal Medicine; Visit Provider Radiology Diagnostic Radiology | DX: N13.1 Hydronephrosis with ureteral stricture, not elsewhere classified (principal) | CPT/HCPCS: 78708 ==

== ENCOUNTER 2025-02-05 08:12 | Outpatient (AMB) | payer MEDICARE, OTHER, SELFPAY ==
--- OUTSIDE RECORDS SUMMARY | 2025-02-05 08:31 | XMS_ITS | Encounter Summary ---
Author Organization [facility] Address [address] [place] [address] Phone Care Team Providers Care Information Security Risk Analyst Name Role Phone Jono Lezama MD Primary Care Provider [phone] Encounter Details Date Type Department Care Team (Late Contact Info) Description 04/19/2023 Documentation Only [facility] [address] [place] [address] [place] [address] [place] [phone] Social History Tobacco Use Types Packs/Day Years Used Date Smoking Tobacco: Never Assessed Sex and Gender Information Value Date Recorded Sex Assigned at Not on file Legal Sex Male 8:15 AM EDT Gender Identity Not on file Sexual Orientation Not on file documented as of this encounter Plan of Treatment Upcoming Encounters Date Type Department Care Team (Late st Contact Info) Description 07/28/2025 2:00 PM EDT Office Visit [facility] [address] [place] [address] Jose Mendez MD [address] [place] [address] [place] [address] documented as of this encounter Visit Diagnoses Not on filedocumented in this encounter Care Teams Information Security Risk Analyst Relationship Specialty Start Date End Date Jono Lezama MD [address] [place] [id number] PCP - General Internal Medicine 04/04/23 documented as of this encounter
--- OUTSIDE RECORDS SUMMARY | 2025-02-05 08:31 | XMS_ITS | Encounter Summary ---
Author Organization [facility] Address [address] [place] [address] Phone Care Team Providers Care School Cleaner Name Role Phone Jono Lezama MD Primary Care Provider Encounter Details Date Type Department Care Team (Late st Contact Info) Description 09/29/2022 Documentation Only [facility] [address] [place] [address] Wilfrid Whaley MD [address] [place] [address] Social History Tobacco Use Types Packs/Day Years [...] Visit [facility] [address] [place] [address] Jose Mendez MD [address] [place] [address] [place] [address] documented as of this encounter Visit Diagnoses Not on filedocumented in this encounter Care Teams School Cleaner Relationship Specialty Start Date End Date Jono Lezama MD [address] [place], [place] [phone] PCP - General Internal Medicine 04/04/23 documented as of this encounter
--- OUTSIDE RECORDS SUMMARY | 2025-02-05 08:31 | XMS_ITS | Encounter Summary ---
Author Organization [facility] Address [address] [place] [address] Phone Care Team Providers Care Stockroom Coordinator Name Role Phone Jono Lezama MD Primary Care Provider [phone] Encounter Details Date Type Department Care Team (Late st Contact Info) Description 01/27/2025 Documentation Only [facility] [address] [place] [address] Doris Freedman [address] [place] [phone] Social History Tobacco Use Types Packs/Day Years [...] [facility] [address] [place] [address] Jose Mendez MD [address] [place] [address] [place] [address] documented as of this encounter Visit Diagnoses Not on filedocumented in this encounter Care Teams Stockroom Coordinator Relationship Specialty Start Date End Date Jono Lezama MD [address] [place], [place] [phone] PCP - General Internal Medicine 04/04/23 documented as of this encounter
--- OUTSIDE RECORDS SUMMARY | 2025-02-05 08:31 | XMS_ITS | Encounter Summary ---
Author Organization [facility] Address [address] [place] [address] Phone Care Team Providers Care Business Services Analyst Name Role Phone Jono Lezama MD Primary Care Provider [phone] Encounter Details Date Type Department Care Team (Late st Contact Info) Description 07/17/2023 Documentation Only [facility] [address] [place] [address] Doris Freedman [address] [place] [phone] Social History Tobacco Use Types Packs/Day Years [...] Visit [facility] [address] [place] [place] [address] Jose Mendez MD [address] [place] [address] [place] [address] documented as of this encounter Visit Diagnoses Not on filedocumented in this encounter Care Teams Business Services Analyst Relationship Specialty Start Date End Date Jono Lezama MD [address] [place], [place] [phone] PCP - General Internal Medicine 04/04/23 documented as of this encounter
--- OUTSIDE RECORDS SUMMARY | 2025-02-05 08:31 | XMS_ITS | Encounter Summary ---
Author Organization [facility] Address [address] [place] [address] Phone Care Team Providers Care Whizzer Operator Name Role Phone Jono Lezama MD Primary Care Provider [phone] Encounter Details Date Type Department Care Team (Late st Contact Info) Description 07/17/2023 Documentation Only [facility] [address] [place] [address] Doris Freedman [address] [place] [phone] Social History Tobacco Use Types Packs/Day Years [...] Visit [facility] [address] [place] [address] Jose Mendez MD [address] [place] [address] [place] [address] documented as of this encounter Visit Diagnoses Not on filedocumented in this encounter Care Teams Whizzer Operator Relationship Specialty Start Date End Date Jono Lezama MD [address] [place], [place] [phone] PCP - General Internal Medicine 04/04/23 documented as of this encounter
--- OUTSIDE RECORDS SUMMARY | 2025-02-05 08:31 | XMS_ITS | Encounter Summary ---
Author Organization [facility] Address [address] [place] [address] Phone Care Team Providers Care Director Of Field Sales Name Role Phone Jono Lezama MD Primary Care Provider [phone] Encounter Details Date Type Department Care Team (Late Contact Info) Description 04/25/2023 Documentation Only [facility] [address] [place] [address] [place], [place] [address] [place] [phone] Social History Tobacco Use Types Packs/Day Years [...] Visit [facility] [address] [place] [address] Jose Mendez MD [address] [place] [address] [place] [address] documented as of this encounter Visit Diagnoses Not on filedocumented in this encounter Care Teams Director Of Field Sales Relationship Specialty Start Date End Date Jono Lezama MD [address] [place] [id number] PCP - General Internal Medicine 04/04/23 documented as of this encounter
--- OUTSIDE RECORDS SUMMARY | 2025-02-05 08:31 | XMS_ITS | Encounter Summary ---
Author Organization [facility] Address [address] [place] [address] Phone Care Team Providers Care Slot Floorman Name Role Phone Wilfrid Johnston MD Primary Care Provider Unavailable Jono Lezama MD Primary Care Provider [phone] Encounter Details Date Type Department Care Team (Late st Contact Info) Description 06/06/2017 Ancillary Orders [facility], X-Ray - [address] [place] [address] Pina Kaiser, [facility] [address] [facility], [address] [place] [address] Left wrist pain Social History Tobacco Use Types Packs/Day Years Used Date Smoking Tobacco: Never Assessed Sex and Gender Information Value Date Recorded Sex Assigned at Not on file Legal Sex Male 9:22 AM EST Gender Identity Not on file Sexual Orientation Not on file documented as of this encounter Plan of Treatment Upcoming Encounters Date Type Department Care Team (Late st Contact Info) Description 04/14/2025 9:30 AM EST Office Visit [facility] Internal Medicine [address] [place] [address] [id number] Jono Lezama MD [address] [place] [address] documented as of this encounter Results * XR WRIST 3 OR MORE VIEWS (LEFT) (06/06/2017 9:51 AM EST) Anatomical Region Laterality Modality Wrist Left Radiographic Sera ging 06/06/2017 9:56 AM EST Impressions 06/06/2017 10:04 AM EST Possible nondisplaced distal radius fracture versus anatomic variant as described. 5 mm metallic foreign body in the dorsal soft tissues at the level of the second and third metacarpal heads. POS - [id number] Narrative 06/06/2017 10:04 AM EST HISTORY: Left wrist pain over the distal radius with limited range of motion and swelling after a fall COMPARISON: None FINDINGS: Five views of the left wrist are performed. There is irregular contour of the dorsal cortex of the distal radius with equivocal lucency medially. Nondisplaced fracture is possible versus an anatomic variant. No malalignment. Moderate joint space narrowing with spurring and subchondral sclerosis at the first CMC and triscaphe joints from degenerative change. No destructive bone lesion. 5 mm linear metallic radiodensity within the dorsal soft tissues between the second and third metacarpal heads. Procedure Note Saritha Briceño MD - 06/06/2017 HISTORY: Left wrist pain over the distal radius with limited range ofmotion and swelling after a fall COMPARISON: None FINDINGS: Five views of the left wrist are performed. There is irregular contour ofthe dorsal cortex of the distal radius with equivocal lucency medially.Nondisplaced fracture is possible versus an anatomic variant. Nomalalignment. Moderate joint space narrowing with spurring andsubchondral sclerosis at the first CMC and triscaphe joints fromdegenerative change. No destructive bone lesion. 5 mm linear metallicradiodensity within the dorsal soft tissues between the second and thirdmetacarpal heads. IMPRESSION: Possible nondisplaced distal radius fracture versus anatomic variant asdescribed. 5 mm metallic foreign body in the dorsal soft tissues at thelevel of the second and third metacarpal heads. POS - [id number] us Pina Kaiser SUPERVISOR SHEARING IMG XR UPPER EXTREMITY F inal Result documented in this encounter Visit Diagnoses Diagnosis Left wrist pain Pain in joint, forearm Left wrist pain Pain in joint, forearm documented in this encounter Care Teams Slot Floorman Relationship Specialty Start Date End Date Wilfrid Johnston MD PCP - General Internal Medicine 06/06/17 03/06/23 Jono Lezama MD [address] [place] [address] [email or web address] PCP - General Internal Medicine 03/07/23 documented as of this encounter Additional Source Comments The information contained in this document represents components of the legal health record. It is not the complete legal health record.[facility]
--- OUTSIDE RECORDS SUMMARY | 2025-02-05 08:31 | XMS_ITS | Encounter Summary ---
Author Organization [facility] Address [address] [place] [address] Phone Care Team Providers Care Library Science Instructor Name Role Phone Jono Lezama MD Primary Care Provider [phone] Encounter Details Date Type Department Care Team (Late st Contact Info) Description 07/17/2023 Documentation Only [facility] [address] [place] [address] Doris Freedman [address] [place] [phone] Social History Tobacco Use Types Packs/Day Years [...] Visit [facility] [address] [place] [address] Jose Mendez MD [address] [place] [address] [place] [address] documented as of this encounter Visit Diagnoses Not on filedocumented in this encounter Care Teams Library Science Instructor Relationship Specialty Start Date End Date Jono Lezama MD [address] [place], [place] [id number] PCP - General Internal Medicine 04/04/23 documented as of this encounter
--- OUTSIDE RECORDS SUMMARY | 2025-02-05 08:32 | XMS_ITS | Encounter Summary ---
Author Organization [facility] Address [address] [place] [address] Phone Care Team Providers Care Muleser Name Role Phone Jono Lezama MD Primary Care Provider [phone] Encounter Details Date Type Department Care Team (Late st Contact Info) Description 07/18/2023 Documentation Only [facility] [address] [place] [address] Doris Freedman [address] [place] [phone] Social History Tobacco Use Types Packs/Day Years [...] Visit [facility] [address] [place] [address] Jose Mendez MD [address] [place] [address] [place] [address] documented as of this encounter Visit Diagnoses Not on filedocumented in this encounter Care Teams Muleser Relationship Specialty Start Date End Date Jono Lezama MD [address] [place], [place] [phone] PCP - General Internal Medicine 04/04/23 documented as of this encounter
--- OUTSIDE RECORDS SUMMARY | 2025-02-05 08:32 | XMS_ITS | Encounter Summary ---
Author Organization [facility] Address [address] [place] [address] Phone Care Team Providers Care Industrial Organizational Psychologist Name Role Phone Jono Lezama MD Primary Care Provider Encounter Details Date Type Department Care Team (Late st Contact Info) Description 01/24/2024 Documentation Only [facility] [address] [place] [address] Doris Freedman [address] [place] [phone] Social History Tobacco Use Types Packs/Day Years [...] Visit [facility] [address] [place] [address] Jose Mendez MD [address] [place] [address] [place] [address] documented as of this encounter Visit Diagnoses Not on filedocumented in this encounter Care Teams Industrial Organizational Psychologist Relationship Specialty Start Date End Date Jono Lezama MD [address] [place], [place] [phone] PCP - General Internal Medicine 04/04/23 documented as of this encounter
--- OUTSIDE RECORDS SUMMARY | 2025-02-05 08:32 | XMS_ITS | Encounter Summary ---
Author Organization [facility] Address [address] [place] [address] Phone Care Team Providers Care Wound/Ostomy Nurse Name Role Phone Jono Lezama MD Primary Care Provider [phone] Encounter Details Date Type Department Care Team (Late st Contact Info) Description 07/22/2024 Documentation Only [facility] [address] [place] [address] Doris Freedman [address] [place] [phone] Social History Tobacco Use Types Packs/Day Years [...] Visit [facility] [address] [place] [address] Jose Mendez MD [address] [place] [address] [place] [address] documented as of this encounter Visit Diagnoses Not on filedocumented in this encounter Care Teams Wound/Ostomy Nurse Relationship Specialty Start Date End Date Jono Lezama MD [address] [place], [place] [phone] PCP - General Internal Medicine 04/04/23 documented as of this encounter
--- OUTSIDE RECORDS SUMMARY | 2025-02-05 08:32 | XMS_ITS | Encounter Summary ---
Author Organization [facility] Address [address] [place] [address] Phone Care Team Providers Care Broom Worker Name Role Phone Jono Lezama MD Primary Care Provider [phone] Encounter Details Date Type Department Care Team (Late st Contact Info) Description 07/17/2023 Documentation Only [facility] [address] [place] [address] Doris Freedman [address] [place] [phone] Social History Tobacco Use Types Packs/Day Years [...] Visit [facility] [address] [place] [address] Jose Mendez MD [address] [place] [address] [place] [address] documented as of this encounter Visit Diagnoses Not on filedocumented in this encounter Care Teams Broom Worker Relationship Specialty Start Date End Date Jono Lezama MD [address] [place], [place] [phone] PCP - General Internal Medicine 04/04/23 documented as of this encounter
--- OUTSIDE RECORDS SUMMARY | 2025-02-05 08:32 | XMS_ITS | Encounter Summary ---
Author Organization [facility] Address [address] [place] [address] Phone Care Team Providers Care Cyber Security Analyst Name Role Phone Jono Lezama MD Primary Care Provider [phone] Encounter Details Date Type Department Care Team (Late st Contact Info) Description 07/18/2023 Documentation Only [facility] [address] [place] [address] Doris Freedman [address] [place] [phone] Social History Tobacco Use Types Packs/Day Years [...] [facility] [address] [place] [address] Jose Mendez MD [address] [place] [address] [place] [address] documented as of this encounter Visit Diagnoses Not on filedocumented in this encounter Care Teams Cyber Security Analyst Relationship Specialty Start Date End Date Jono Lezama MD [address] [place], [place] [phone] PCP - General Internal Medicine 04/04/23 documented as of this encounter
--- OUTSIDE RECORDS SUMMARY | 2025-02-05 08:32 | XMS_ITS | Encounter Summary ---
Author Organization [facility] Address [address] [place] [address] Phone Care Team Providers Care Server Cashier Name Role Phone Jono Lezama MD Primary Care Provider [phone] Encounter Details Date Type Department Care Team (Late st Contact Info) Description 01/25/2024 Documentation Only [facility] [address] [place] [address] Doris Freedman [address] [place] [phone] Social History Tobacco Use Types Packs/Day Years [...] Visit [facility] [address] [place] [address] Jose Mendez MD [address] [place] [address] [place] [address] documented as of this encounter Visit Diagnoses Not on filedocumented in this encounter Care Teams Server Cashier Relationship Specialty Start Date End Date Jono Lezama MD [address] [place], [place] [phone] PCP - General Internal Medicine 04/04/23 documented as of this encounter
--- OUTSIDE RECORDS SUMMARY | 2025-02-05 08:32 | XMS_ITS | Encounter Summary ---
Author Organization [facility] Address [address] [place] [address] Phone Care Team Providers Care Night Clerk Name Role Phone Jono Lezama MD Primary Care Provider [phone] Encounter Details Date Type Department Care Team (Late st Contact Info) Description 07/18/2023 Documentation Only [facility] [address] [place] [address] Doris Freedman [address] [place] [phone] Social History Tobacco Use Types Packs/Day Years [...] Visit [facility] [address] [place] [address] Jose Mendez MD [address] [place] [address] [place] [address] documented as of this encounter Visit Diagnoses Not on filedocumented in this encounter Care Teams Night Clerk Relationship Specialty Start Date End Date Jono Lezama MD [address] [place], [place] [phone] PCP - General Internal Medicine 04/04/23 documented as of this encounter
--- OUTSIDE RECORDS SUMMARY | 2025-02-05 08:32 | XMS_ITS | Encounter Summary ---
Author Organization [facility] Address [address] [place] [address] Phone Care Team Providers Care Commercial Technician Name Role Phone Jono Lezama MD Primary Care Provider [phone] Encounter Details Date Type Department Care Team (Late st Contact Info) Description 07/17/2023 Documentation Only [facility] [address] [place] [address] Doris Freedman [address] [place] [phone] Social History Tobacco Use Types Packs/Day Years [...] Visit [facility] [address] [place] [address] Jose Mendez MD [address] [place] [address] [place] [address] documented as of this encounter Visit Diagnoses Not on filedocumented in this encounter Care Teams Commercial Technician Relationship Specialty Start Date End Date Jono Lezama MD [address] [place], [place] [phone] PCP - General Internal Medicine 04/04/23 documented as of this encounter
--- OUTSIDE RECORDS SUMMARY | 2025-02-05 08:32 | XMS_ITS | Encounter Summary ---
Author Organization [facility] Address [address] [place] [address] Phone Care Team Providers Care Florist Supplies Salesperson Name Role Phone Jono Lezama MD Primary Care Provider [phone] Encounter Details Date Type Department Care Team (Late st Contact Info) Description 01/27/2025 Documentation Only [facility] [address] [place] [address] Doris Freedman [address] [place] [phone] Social History Tobacco Use Types Packs/Day Years [...] Visit [facility] [address] [place] [address] Jose Mendez MD [address] [place] [address] [place] [address] documented as of this encounter Visit Diagnoses Not on filedocumented in this encounter Care Teams Florist Supplies Salesperson Relationship Specialty Start Date End Date Jono Lezama MD [address] [place], [place] [phone] PCP - General Internal Medicine 04/04/23 documented as of this encounter
--- OUTSIDE RECORDS SUMMARY | 2025-02-05 08:32 | XMS_ITS | Encounter Summary ---
Author Organization [facility] Address [address] [place] [address] Phone Care Team Providers Care Second Crusher Name Role Phone Jono Lezama MD Primary Care Provider [phone] Encounter Details Date Type Department Care Team (Late st Contact Info) Description 01/25/2024 Documentation Only [facility] [address] [place] [address] Doris Freedman [address] [place] [phone] Social History Tobacco Use Types Packs/Day Years [...] Visit [facility] [address] [place] [address] Jose Mendez MD [address] [place] [address] [place] [address] documented as of this encounter Visit Diagnoses Not on filedocumented in this encounter Care Teams Second Crusher Relationship Specialty Start Date End Date Jono Lezama MD [address] [place], [place] [phone] PCP - General Internal Medicine 04/04/23 documented as of this encounter
--- OUTSIDE RECORDS SUMMARY | 2025-02-05 08:32 | XMS_ITS | Encounter Summary ---
Author Organization [facility] Address [address] [place] [address] Phone Care Team Providers Care Enterprise Services Manager Name Role Phone Jono Lezama MD Primary Care Provider [phone] Encounter Details Date Type Department Care Team (Late st Contact Info) Description 07/22/2024 Documentation Only [facility] [address] [place] [address] Doris Freedman [address] [place] [phone] Social History Tobacco Use Types Packs/Day Years [...] Visit [facility] [address] [place] [address] Jose Mendez MD [address] [place] [address] [place] [address] documented as of this encounter Visit Diagnoses Not on filedocumented in this encounter Care Teams Enterprise Services Manager Relationship Specialty Start Date End Date Jono Lezama MD [address] [place], [place] [phone] PCP - General Internal Medicine 04/04/23 documented as of this encounter
--- OUTSIDE RECORDS SUMMARY | 2025-02-05 08:32 | XMS_ITS | Encounter Summary ---
Author Organization [facility] Address [address] [place] [address] Phone Care Team Providers Care Inspector Of Dredging Name Role Phone Jono Lezama MD Primary Care Provider [phone] Encounter Details Date Type Department Care Team (Late st Contact Info) Description 07/22/2024 Documentation Only [facility] [address] [place] [address] Doris Freedman [address] [place] [phone] Social History Tobacco Use Types Packs/Day Years [...] Visit [facility] [address] [place] [address] Jose Mendez MD [address] [place] [address] [place] [address] documented as of this encounter Visit Diagnoses Not on filedocumented in this encounter Care Teams Inspector Of Dredging Relationship Specialty Start Date End Date Jono Lezama MD [address] [place], [place] [phone] PCP - General Internal Medicine 04/04/23 documented as of this encounter
--- OUTSIDE RECORDS SUMMARY | 2025-02-05 08:32 | XMS_ITS | Encounter Summary ---
Author Organization [facility] Address [address] [place] [address] Phone Care Team Providers Care Fountain Pen Nibs Inspector Name Role Phone Jono Lezama MD Primary Care Provider [phone] Encounter Details Date Type Department Care Team (Late st Contact Info) Description 01/24/2024 Documentation Only [facility] [address] [place] [address] Doris Freedman [address] [place] [phone] Social History Tobacco Use Types Packs/Day Years [...] Visit [facility] [address] [place] [address] Jose Mendez MD [address] [place] [address] [place] [address] documented as of this encounter Visit Diagnoses Not on filedocumented in this encounter Care Teams Fountain Pen Nibs Inspector Relationship Specialty Start Date End Date Jono Lezama MD [address] [place], [place] [phone] PCP - General Internal Medicine 04/04/23 documented as of this encounter
--- NOTE | 2025-02-05 08:33 | MHC.OFFVIS ---
Intake Visit Reasons: 1y/Lasix renogram Intake Note: Patient is Present for 1 yr Follow Up Urology Medication: , Vitamin B6, Tamsulosin Antibiotic Allergies:None Blood Thinners: None Imaging : NM Renal Scan 01/22/48 PVR: 34 mls Ultrasound Technologist Required: No Accompanied by: Self / Same As Patient Allergies No Known Allergies Allergy (Verified 02/05/25 08:34) HPI Comments Details: Tj Veliz is a very pleasant male. He is a patient of Dr Whaley?. He is seen for the following urologic conditions. - erectile dysfunction - lower urinary tract symptoms - Partial UPJ obstruction Stamping [employer] Dr. Mendez. 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 Delay in emptying of dilated left renal pelvis likely due to dilatation 09/28 Laser left UPJ incision with AccuSize stent Imaging - 11/28 - Lasix renogram. Good uptake. Left kidney 60%. No evidence of obstruction. Dilated renal pelvis consistent with prior imaging. - 12/30 Stable examination demonstrating suggestive of partial obstruction on the left. Normal function on the right Lower urinary tract symptoms Current medications tamsulosin 0.4 mg Recent labs included?a PSA (prostate-specific antigen) 2012 0.6,2016 0.8, 10/23 0.7, 10/24 0.8, 10/26 0.8, 01/27 0.9 Continue Erectile dysfunction: No longer consideration ? He presents today for?for continued evaluation and management of erectile dysfunction.? Symptoms have been present for/since?years ago.? Current treatment includes?Viagra/sildenafil 100 mg ? Treatment side effects include?none.? Prior therapies include?oral medications.? At this time he experiences erections?are partial and adequate for vaginal penetration, that last until ejaculation, CHRISTIANA 8-11 Moderate ED.? Nocturnal erections?do not occur.? Currently they are?in a stable relationship, has a partner who is interested in treatment.? Associated problems? hypertension ?Yes ? diabetes ?No ? dyslipidemia ?Yes ? Overall he is ?satisfied with the current management.? Therapeutic plan includes?12 m review.? 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 Surgical History Hx of cystoscopy History of surgical removal of pilonidal cyst H/O colonoscopy H/O varicose vein stripping H/O hernia repair Social History Patient Tobacco Use Status: Former Tobacco user Tobacco use type: Cigarette Years Smoked: 10 Review of Systems Const Denies chills and Denies fever(s) Card Reports no additional complaints and Denies syncope Resp Denies cough GI Denies abdominal pain and Denies heartburn Reports as per HPI and Denies change in libido Neuro Denies syncope Psych Denies change in libido Endo Denies change in libido Physical Exam Const General: cooperative, healthy appearing, comfortable and no acute distress Orientation/consciousness: patient oriented x3 HEENT Face and sinus: Yes normal facial exam Mouth: moist mucous membranes Neck Neck: Yes normal visual inspection, Yes full ROM and Yes trachea midline Chest Chest palpation & inspection: normal inspection of the chest Resp Effort & Inspection: normal respiratory effort, able to speak in complete sentences and no respiratory distress GI Inspection: Yes normal to inspection Back/Spine/Pelvis Cervical Spine: normal cervical lordosis Thoracic/Lumbar Spine: thoracic and lumbar spine normal to inspection Skin General skin exam: no rashes or lesions noted Neuro General: patient oriented x3, gait normal, tone normal and moves all extremities Extrem General: Yes normal to inspection and Yes capillary refill normal Assessment & Plan Assessment & Plan (1) Bladder outlet obstruction: Code(s): N32.0 - Bladder-neck obstruction Category: Medical (2) 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: Code(s): N52.1 - Erectile dysfunction due to diseases classified elsewhere Category: Medical (3) Hydroureteronephrosis: Code(s): N13.30 - Unspecified hydronephrosis Category: Medical Plan Twelve month follow-up Patient Instructions: This note is constructed using voice recognition software. While every effort has been made to ensure accuracy professional model errors may have been included. Imaging studies, laboratory and physical exam results were discussed and reviewed in detail. No major barriers to patient understanding were identified. An opportunity to ask questions regarding the treatment plan was provided. All questions were answered. The patient expressed understanding and agreement with the above treatment plan. The patient is aware they should contact our office by phone for worsening of their current condition or the appearance of new urologic symptoms. Compliance is encouraged with any medications and followup testing that is ordered. It is a privilege to participate in the urologic care of your patient. If you have any questions or concerns regarding treatment for the above conditions, or other urologic issues, please do not hesitate to contact me. The office telephone contact is [phone]. Sincerely, Dr Guido Wolf MD, [facility] - Urology Compassionate Specialist Care for the Genitourinary System Coding Level of Care Code Est Pt Level 4 (40803) Complex EM visit Add On G2211 Diagnoses Bladder outlet obstruction N32.0 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 N52.1 Hydroureteronephrosis N13.30
--- OUTSIDE RECORDS SUMMARY | 2025-02-05 08:33 | XMS_ITS | Clinical Summary ---
Author Organization [facility] Address [address] [place] [address] Phone Care Team Providers Care Clipper Counters Name Role Phone Jono Lezama MD Primary Care Provider [phone] Allergies No known active allergies Medications amLODIPine [...] urinary tract symptoms Hypercholesterolemia Benign prostatic hyperplasia Encounters Date Type Department Care Team Description 01/27/2025 2:30 PM EDT Office Visit [facility] [address] [place] [address] Jose Mendez MD Chronic kidney disease, stage 2 (mild) (Primary Dx) 01/27/2025 Documentation Only [facility] [address] [place] [address] Doris Freedman 01/27/2025 Documentation Only [facility] [address] [place] [address] Doirs Freedman from Last 3 Months Immunizations Immunization Administration Dates Next Due Influenza, [...] Sign Reading Time Taken Comments Blood Pressure 121/69 01/27/2025 2:55 PM EDT Pulse 55 01/27/2025 2:55 PM EDT Temperature - - Respiratory Rate - - Oxygen Saturation - - Inhaled Oxygen Concentration - - Weight 68.5 kg (151 lb) 07/18/2023 4:53 PM EDT Height - - Body Mass Index - - Plan of Treatment Upcoming Encounters Date Type Department Care Team (Late st Contact Info) Description 07/28/2025 2:00 PM EDT Office Visit [facility] [address] [place] [address] Jose Mendez MD [address] [place] [address] [place] [phone] Health Maintenance Due Date Last Done Comments Influenza Vaccine (#1) 2025 4, 01/31/2023, 01/31/2023, Additional history exists Pneumococcal Vaccine: 50+ Years Completed 08/18/2022, 11/23/2018 Hepatitis B Vaccine Aged Out No longe r eligible based on patient's age to complete this topic Insurance Medicare [facility] Care Teams Clipper Counters Relationship Specialty Start Date End Date Jono Lezama MD [address] [place] [address] PCP - General Internal Medicine 04/04/23
--- OUTSIDE RECORDS SUMMARY | 2025-02-05 08:33 | XMS_ITS | Encounter Summary ---
Author Organization [facility] Address [address] [place] [address] Phone Care Team Providers Care User Experience Analyst Name Role Phone Jono Lezama MD Primary Care Provider [phone] Encounter Details Date Type Department Care Team (Late st Contact Info) Description 08/20/2024 Documentation Only [facility] [address] [place] [address] Doris Freedman [address] [place] [phone] Social History Tobacco Use Types Packs/Day Years [...] Visit [facility] [address] [place] [address] Jose Mendez MD [address] [place] [address] [place] [address] documented as of this encounter Visit Diagnoses Not on filedocumented in this encounter Care Teams User Experience Analyst Relationship Specialty Start Date End Date Jono Lezama MD [address] [place], [place] [phone] PCP - General Internal Medicine 04/04/23 documented as of this encounter
--- OUTSIDE RECORDS SUMMARY | 2025-02-05 08:33 | XMS_ITS | Encounter Summary ---
Author Organization [facility] Address [address] [place] [address] Phone Care Team Providers Care Cracking Machine Operator Name Role Phone Jono Lezama MD Primary Care Provider [phone] Encounter Details Date Type Department Care Team (Late st Contact Info) Description 01/25/2024 Documentation Only [facility] [address] [place] [address] Doris Freedman [address] [place] [phone] Social History Tobacco Use Types Packs/Day Years [...] Visit [facility] [address] [place] [address] Jose Mendez MD [address] [place] [address] [place] [address] documented as of this encounter Visit Diagnoses Not on filedocumented in this encounter Care Teams Cracking Machine Operator Relationship Specialty Start Date End Date Jono Lezama MD [address] [place], [place] [phone] PCP - General Internal Medicine 04/04/23 documented as of this encounter
--- OUTSIDE RECORDS SUMMARY | 2025-02-05 08:33 | XMS_ITS | Encounter Summary ---
Author Organization [facility] Address [address] [place] [address] Phone Care Team Providers Care Product Marketer Name Role Phone Jono Lezama MD Primary Care Provider Encounter Details Date Type Department Care Team (Late st Contact Info) Description 08/20/2024 Documentation Only [facility] [address] [place] [address] Doris Freedman [address] [place] [phone] Social History Tobacco Use Types Packs/Day Years [...] Visit [facility] [address] [place] [address] Jose Mendez MD [address] [place] [address] [place] [address] documented as of this encounter Visit Diagnoses Not on filedocumented in this encounter Care Teams Product Marketer Relationship Specialty Start Date End Date Jono Lezama MD [address] [place], [place] [phone] PCP - General Internal Medicine 04/04/23 documented as of this encounter
--- OUTSIDE RECORDS SUMMARY | 2025-02-05 08:33 | XMS_ITS | Encounter Summary ---
Author Organization [facility] Address [address] [place] [address] Phone Care Team Providers Care Continuous Mining Machine Company Miner Name Role Phone Jono Lezama MD Primary Care Provider [phone] Encounter Details Date Type Department Care Team (Late st Contact Info) Description 07/22/2024 Documentation Only [facility] [address] [place] [address] Doris Freedman [address] [place] [phone] Social History Tobacco Use Types Packs/Day Years [...] [facility] [address] [place] [address] Jose Mendez MD [address] [place] [address] [place] [address] documented as of this encounter Visit Diagnoses Not on filedocumented in this encounter Care Teams Continuous Mining Machine Company Miner Relationship Specialty Start Date End Date Jono Lezama MD [address] [place], [place] [phone] PCP - General Internal Medicine 04/04/23 documented as of this encounter
--- OUTSIDE RECORDS SUMMARY | 2025-02-05 08:33 | XMS_ITS | Encounter Summary ---
Author Organization [facility] Address [address] [place] [address] [place] [address] Phone Care Team Providers Care Offal Baler Name Role Phone Jono Lezama MD Primary Care Provider Reason for Referral * Hospital - Outpatient - Closed Specialty Diagnoses / Procedures Referred By Yolanda wynn Referred To Contact Radiology Procedures Outside [place] Imaging Report Only [facility] Internal Medicine [address] [place] [address] Phone: tel: fax: Referral ID Status Reason Start Date Expiration Date Visits Re quested Visits Authorized [id number] Closed 01/22/2025 1 1 Encounter Details Date Type Department Care Team (Late st Contact Info) Description 01/22/2025 Orders Only [facility] Internal Medicine [address] [place] [address] Susanna Staton MD [address] [place] [address] Social History Tobacco Use Types Packs/Day Years Used Date Smoking Tobacco: Former Cigarettes 23 23 1 959 - 1982 Smokeless Tobacco: Never Alcohol Use Standard Drinks/Week Comments Not Currently 0 (1 standard drink = 0.6 oz pur e alcohol) Child or Family Care Answer Date Record ed Do you have problems with on e of the following making it difficult for you to work, study, or receive health care? No 01/31/2023 Education Answer Date Recorded Are you interested in more education? Not on waylon e 10/05/2022 Are you concerned about learning? Not on file 10/05/2022 No 10/05/2022 No 10/05/2022 Food Answer Date Recorded Within the past 6 months we worried whether our food would run out before we got money to buy more. Never True 01/31/2023 Within the past 6 months the food we bought just didn't last and we didn't have enough money to get more. Never True Residential Stability Answer Date Recor ded What is your housing situation today? I have kehinde sing 01/31/2023 How many times have you move d in the past 12 months? Zero (I did not move) 01/31/2023 Paying for Meds Answer Date Recorded Do you have trouble paying for medicines? No 01/31/2023 Paying Utility Bills Answer Date Record ed Do you have trouble paying your heating or elect ricity bill? No 01/31/2023 Transportation Answer Date Recorded Has the lack of transportati on kept you from medical appointments or from getting medications? No 01/31/2023 Digital Access Answer Date Recorded No 01/31/2023 Yes 01/31/2023 Do you have reliable internet access at home? Ye s 01/31/2023 Do you have a device (e.g., phone, tablet, computer) with a working camera? Yes 01/31/2023 Intimate Partner Violence Answer Date R ecorded Denied Basic Needs Not on file 10/21/2024 In the past 12 months have y ou been in a relationship with a person who hurts, threatens, or tries to control you? No 10/21/2024 Worried food would run out Not on file 10/21 In the past 12 months have y ou been in a relationship with a person who hurts, threatens, or tries to control you? No 10/21/2024 Sex and Gender Information Value Date Recorded Sex Assigned at Not on file Legal Sex Male 9:22 AM EST Gender Identity Not on file Sexual Orientation Not on file documented as of this encounter Plan of Treatment Upcoming Encounters Date Type Department Care Team (Late st Contact Info) Description 04/14/2025 9:30 AM EST Office Visit [facility] [place] Internal Medicine [address] [place] [address] Jono Lezama MD [address] [place] [address] [email or web address] documented as of this encounter Procedures Procedure Name Priority Date/Time Associated Diagnosis Comments OUTSIDE [place] IMAGING REPORT ONLY Routine 01/21/2025 2:54 PM EDT documented in this encounter Results * Outside [place] Imaging Report Only (01/21/2025 2:54 PM EDT) us Historical Provider MD [place] ABDOMEN Final Res ult documented in this encounter Visit Diagnoses Not on filedocumented in this encounter Additional Health Concerns Assessment Noted Time PHQ-2 Depression Total Score: 0 10/22/19 25 8:08 AM EDT documented as of this encounter Care Teams Offal Baler Relationship Specialty Start Date End Date Jono Lezama MD [address] [place] [address] [email or web address] PCP - General Internal Medicine 03/07/23 documented as of this encounter Additional Source Comments The information contained in this document represents components of the legal health record. It is not the complete legal health record.[facility]
--- OUTSIDE RECORDS SUMMARY | 2025-02-05 08:33 | XMS_ITS | Clinical Summary ---
Author Organization [facility] Address [address] [place] [address] Phone Care Team Providers Care Dough Maker Name Role Phone Jono Lezama MD Primary Care Provider [phone] Allergies No known active allergies Medications tamsulosin (FLOMAX) 0.4 mg Cap Take 0.4 mg by mouth nightly at bedtime. 3 Active cyanocobalamin, vitamin B-12, 1000 MCG tablet Take 1 tablet by mouth daily. Active amLODIPine (NORVASC) 2.5 MG tabletIndications :Hypertensive disorder TAKE 1 TABLET BY MOUTH EVERY DAY IN THE MORNING 90 tablet 3 5 Active losartan (COZAAR) 50 MG tabletIndications :Primary hypertension Take 1 tablet (50 mg total) by mouth daily. 90 tablet 3 5 Active losartan (COZAAR) 50 MG tabletIndications :Primary hypertension Take 1 tablet (50 mg total) by mouth daily. 90 tablet 3 4 01/10/20 25 Discontinu ed(Reorder ) Active Problems Problem Noted Date Diagnosed Date Internal hernia 08/06/2024 Assessment & Plan (08/06/2024 11:07 AM EDT): We confirmed with the patient that he could continue with a regular diet, stay well-hydrated. The diagnosis here was an internal hernia is unclear whether constipation ultimately because this Charlie advising him until October to stay away from the iron which she was using for his renal anemia. Will recheck CBC when we see him in October. Consider referral to nephrology. He does have a follow-up with the surgeon regarding the laparoscopic reduction of the internal hernia. He is having no issues now, there will call him to set up the appointment and follow-up. In regards to his B12 deficiency continue 1000 mcg daily but not 2500 mcg. No need for folic acid, hold off on the iron daily. The patient's daughter took note of the recommendations and will remind patient when at home. Routine general medical exam ination at a [facility] care facility 09/11/2023 Weight loss, abnormal 01/31/2023 Assessment & Plan (01/31/2023 3:28 PM EDT): The weight loss appears to be stress related. Recommend supplementary shakes to prop up weight, take 3 times daily for a month and weigh weekly. Anemia due to stage 3a chronic kidney disease Assessment & Plan (05/16/2023 10:14 AM EST): Recheck CBC in 3 months along with Chem-7 with particular attention to MCV. Patient should be well-hydrated when going for labs. Assessment & Plan (01/31/2023 3:30 PM EDT): Check ferritin and B12 level, assess hematocrit and hemoglobin, most recent labs showing mild anemia B12 deficiency 01/31/2023 Assessment & Plan (04/19/2024 4:35 PM EST): With the variability in the B12 level he can continue the 1000 mcg/day p.o. B12 and will obtain another B12 level in 6 months. Assessment & Plan (05/16/2023 10:13 AM EST): I have instructed him to come off of the B12 supplement and will recheck B12 level in 3 months. Assessment & Plan (01/31/2023 3:27 PM EDT): The last B12 was low, then he was started on sublingual B12 2500 mcg daily. Check B12 level today and will act upon the numbers. If it is still low normal then consider switching over to IM Hyperlipidemia Assessment & Plan (05/16/2023 10:14 AM EST): With the patient's marked improvement in diet the simvastatin may be superfluous. Lets hold the simvastatin and check a lipid profile in 3 months fasting. Assessment & Plan (01/31/2023 3:29 PM EDT): Dyslipidemia managed with statin therapy, check lipid profile and liver enzymes, no statin myalgias. Check liver enzymes. Hypertensive disorder Assessment & Plan (04/19/2024 4:36 PM EST): It is unclear if he has stage IIIa chronic kidney disease, his creatinine was within normal range but BUN was elevated. Lets obtain another Chem-7 and he should be well-hydrated before he comes in for that lab. Blood pressure is well-controlled with the Cozaar and amlodipine which of course the losartan can increase creatinine artificially. Assessment & Plan (05/16/2023 10:13 AM EST): Blood pressure is borderline here but the drop in Cozaar with the home blood pressure readings appears to be adequately controlled. Will continue to prescribe the losartan along with the Norvasc. Check Chem-7 in 3 months. Assessment & Plan (01/31/2023 3:27 PM EDT): Advised the patient to reduce the Cozaar down to 50 mg and check blood pressure at home daily for the next 20 days then report back to us on average. If still blood pressure low consider discontinuing Norvasc. We will follow-up on the blood pressure again in May. Benign prostatic hyperplasia with urinary freque ncy Assessment & Plan (01/31/2023 3:29 PM EDT): He will continue to see his urologist regarding BPH related symptoms, we can take over the Flomax, once the consult is done Encounters Date Type Department Care Team Description 01/22/2025 Orders Only [facility] [place] Internal Medicine [address] [place] [address] Provider, MD Susanna from Last 3 Months Immunizations Immunization Administration Dates Next Due COVID-19 (Pre-02/27) Moderna Vaccine, mRNA, PF 0 07/22/2020 INFLUENZA, SPLIT VIRUS, TRIVALENT W/ PRESERVATIV E IM 06/04/2021 Influenza High-Dose Quadrivalent Preservative Fr ee IM 01/31/2023 Influenza High-Dose Trivalent Preservative Free IM 04/19/2024 Influenza, Unspecified Formulation 06/04/2021 Pneumococcal conjugate PCV13 11/23/2018 Pneumococcal polysaccharide PPSV23 08/18/2022 RSV Vaccine (monovalent, adjuvanted) 05/31/2023 Tdap 02/17/2015 Zoster recombinant 02/03/2023,08/18/2022 Family History Medical History Relation Comments Anemia Father Prostate cancer Father Anemia Mother Anemia Sister Relation Status Comments Father Mother Sister Social History Tobacco Use Types Packs/Day Years Used Date Smoking Tobacco: Former Cigarettes 23 23 1 959 - 1981 Smokeless Tobacco: Never Tobacco Cessation:Counseling Given: Not Answered Alcohol Use Standard Drinks/Week Comments Not Currently [...] 01/31/2023 Digital Access Answer Date Recorded No 02/04/2025 No 02/04/2025 Reliable internet access at home? Not on file 02/04/2025 Device with a working camera? Not on file Intimate Partner Violence Answer Date R ecorded [...] Sign Reading Time Taken Comments Blood Pressure 132/70 10/21/2024 8:02 AM EDT Pulse 45 10/21/2024 8:02 AM EDT Temperature 36.6 C (97.9 F) 10/21/2024 8:02 AM EDT Respiratory Rate 18 08/06/2024 10:2 2 AM EDT Oxygen Saturation 99% 10/21/2024 8:02 AM EDT Inhaled Oxygen Concentration - - Weight 74.8 kg (164 lb 12.8 oz) 10/21/2024 8:02 AM EDT Height 173.8 cm (5' 8.43 ) 10/21/2024 8:02 AM ED T Body Mass Index 24.75 10/21/2024 8:02 AM EDT Plan of Treatment Upcoming Encounters Date Type Department Care Team (Late st Contact Info) Description 04/14/2025 9:30 AM EST Office Visit [facility] [place] Internal Medicine [address] [place] [address] Jono Lezama MD [address] [place] [address] [email or web address] Health Maintenance Due Date Last Done Comments INFLUENZA VACCINE (#1) 2024 , 01/31/2023, 06/04/2021, Additional history exists COVID-19 VACCINE ( season) 2025 03/23/2021, 08/19/2020, 07/22/2020 Adult Td,Tdap Booster 02/17/2025 02/17/2015 BLOOD PRESSURE 04/22/2025 10/21/2024 CREATININE LEVEL 10/16/2025 10/16/2024, , 03/22/2024, Additional history exists POTASSIUM LEVEL 10/16/2025 10/16/2024, 07/06, 03/22/2024, Additional history exists DEPRESSION SCREENING 10/21/2025 10/21/2024 LIPID PANEL 08/07/2028 08/08/2023, 01/31/2023 PNEUMOCOCCAL VACCINES (50+ years) Completed 08/18/2022, 11/23/2018 HEPATITIS C SCREENING Completed 01/31/2023 ZOSTER VACCINES Completed 02/03/2023, 08/18/2022 RSV VACCINE Completed 05/31/2023 SMOKING STATUS SCREENING (Once After 26 Yrs) Completed 10/21/2024 HEPATITIS A VACCINES Aged Out No long er eligible based on patient's age to complete this topic HIB VACCINES Aged Out No longer eligi ble based on patient's age to complete this topic MENINGOCOCCAL VACCINES (ACWY) Aged Out No longer eligible based on patient's age to complete this topic MENINGOCOCCAL VACCINES (B) Aged Out N o longer eligible based on patient's age to complete this topic Medical Devices Not on file Procedures Procedure Name Priority Date/Time Associated Diagnosis Comments OUTSIDE [place] IMAGING REPORT ONLY Routine 01/21/2025 2:54 PM EDT BASIC METABOLIC PANEL Routine 10/16/2024 9:56 AM EDT Primary hypertension LIPID PANEL Routine 08/08/2023 2:29 PM EDT Mixed hyperlipidemia HEPATITIS C ANTIBODY, QUALITATIVE Routine 01/31/2023 3:53 PM EDT Need for hepatitis C screening test from Last 3 Months or Most Recently Relevant to Health Maintenance Results * Outside [place] Imaging Report Only (01/21/2025 2:54 PM EDT) us Historical Provider [place] ABDOMEN Final Res ult * (ABNORMAL) Basic metabolic panel (10/16/2024 9:56 AM EDT) SODIUM 137 133 - 146 mmol/L [facility] CHLORIDE 102 96 - 108 mmol/L [facility] POTASSIUM 4.1 3.3 - 5.1 mmol/L [facility] CO2 23 21 - 35 mmol/L [facility] BUN 22(H) 6 - 19 mg/dL [facility] CREATININE 1.20 0.5 - 1.5 mg/dL [facility] GLUCOSE 84 70 - 99 mg/dL [facility] CALCIUM 9.5 8.4 - 10.3 mg/dL [facility] EGFR 63 >59 mL/min/1.7 3m2 [facility] Comment:Estimated glomerular filtration rate calculated using the CKD-EPI refit equation. ANION GAP 16 10 - 20 mmol/L [facility] Blood 10/16/2024 9:56 AM EDT 10/16/2024 9:59 AM EDT us Jono Lezama MD LAB BLOOD ORDERABLES Final Resul t [address] [address] * (ABNORMAL) Lipid panel (08/08/2023 2:29 PM EDT) HDL 64 mg/dL [facility] Comment: Interpretation <40 mg/dL: Low HDL cholesterol (major risk factor for CHD) Greater than or equal to 60 mg/dL: High HDL cholesterol ( negative risk factor for CHD) HDL - cholesterol is affected by a number of factors, e.g. smoking, excerise, hormones, sex and age. CHOLESTEROL 212 0 - 240 mg/dL [facility] TRIGLYCERIDES 96 30 - 160 mg/dL [facility] LDL 129 50 - 129 mg/dL [facility] Comment: LDL levels in terms of risk for coronary heart disease: <100 mg/dL: Optimal 100-129 mg/dL: Near or above optimal 130-159 mg/dL: Borderline high 160-189 mg/dL: High >190 mg/dL: Very High CARDIAC RISK RATIO 3.3(L) 3.4 - 5.0 [facility] Blood 08/08/2023 2:29 PM EDT 08/08/2023 2:32 PM EDT Jono Lezama MD LAB BLOOD ORDERABLES Final Resul t Performing Organization Address City/[facility]/ZIP Co de Phone Number [address] [address] * Hepatitis C antibody, qualitative (01/31/2023 3:53 PM EDT) HCV NON-REACTIV E NON-REACTI VE [facility] Blood 01/31/2023 3:53 PM EDT 01/31/2023 3:58 PM EDT Jono Lezama MD LAB BLOOD ORDERABLES Final Resul t Performing Organization Address City/[facility] Co de Phone Number [address] [address] from Last 3 Months or Most Recently Relevant to Health Maintenance Insurance MEDICARE PART A & [facility] MEDICARE PART A & B [employer] MEDICARE SUPPLEMENT MEDICARE PART A & B [facility] MEDICARE SUPPLEMENT MEDICARE PART A & B [facility] MEDICARE SUPPLEMENT [facility] MEDICARE SUPPLEMENT [facility] MEDICARE SUPPLEMENT MEDICARE PART A & B [facility] MEDICARE SUPPLEMENT MEDICARE PART A & B [facility] MEDICARE SUPPLEMENT MEDICARE PART A & [facility] SUPPLEMENT Care Teams Dough Maker Relationship Specialty Start Date End Date Jono Lezama MD [address] [place] [address] [phone] [email or web address] PCP - General Internal Medicine 03/07/23 Additional Source Comments The information contained in this document represents components of the legal health record. It is not the complete legal health record.[facility]
--- OUTSIDE RECORDS SUMMARY | 2025-02-05 08:33 | XMS_ITS | Encounter Summary ---
Author Organization [facility] Address [address] [place] [address] Phone Care Team Providers Care Harpoon Engagement Planning Operator Name Role Phone Jono Lezama MD Primary Care Provider [phone] Encounter Details Date Type Department Care Team (Late st Contact Info) Description 08/20/2024 Documentation Only [facility] [address] [place] [address] Doris Freedman [address] [place] [phone] Social History Tobacco Use Types Packs/Day Years [...] Visit [facility] [address] [place] [address] Jose Mendez MD [address] [place] [address] [place] [address] documented as of this encounter Visit Diagnoses Not on filedocumented in this encounter Care Teams Harpoon Engagement Planning Operator Relationship Specialty Start Date End Date Jono Lezama MD [address] [place], [place] [phone] PCP - General Internal Medicine 04/04/23 documented as of this encounter
--- OUTSIDE RECORDS SUMMARY | 2025-02-05 08:33 | XMS_ITS | Encounter Summary ---
Author Organization [facility] Address [address] [place] [address] Phone Care Team Providers Care Investment Banking Analyst Name Role Phone Jono Lezama MD Primary Care Provider [phone] Encounter Details Date Type Department Care Team (Late st Contact Info) Description 01/25/2024 Documentation Only [facility] [address] [place] [place] [address] Doris Freedman [address] [place] [phone] Social History Tobacco Use Types Packs/Day Years [...] Visit [facility] [address] [place] [place] [address] Jose Mendez MD [address] [place] [address] [place] [address] documented as of this encounter Visit Diagnoses Not on filedocumented in this encounter Care Teams Investment Banking Analyst Relationship Specialty Start Date End Date Jono Lezama MD [address] [place], [place] [phone] PCP - General Internal Medicine 04/04/23 documented as of this encounter
--- OUTSIDE RECORDS SUMMARY | 2025-02-05 08:33 | XMS_ITS | Encounter Summary ---
Author Organization [facility] Address [address] [place] [address] Phone Care Team Providers Care Asphalt Roller Person Name Role Phone Jono Lezama MD Primary Care Provider Encounter Details Date Type Department Care Team (Late st Contact Info) Description 08/20/2024 Documentation Only [facility] [address] [place] [address] Doris Freedman [address] [place] [phone] Social History Tobacco Use Types Packs/Day Years [...] Visit [facility] [address] [place] [address] Jose Mendez MD [address] [place] [address] [place] [address] documented as of this encounter Visit Diagnoses Not on filedocumented in this encounter Care Teams Asphalt Roller Person Relationship Specialty Start Date End Date Jono Lezama MD [address] [place], [place] [phone] PCP - General Internal Medicine 04/04/23 documented as of this encounter
== END 2025-02-05 08:57 | disposition home or self-care (01) ==
LOC: HO.HUSH 08:13
PROVIDERS: PCP Internal Medicine; Visit Provider Urology
DX: N32.0 Bladder-neck obstruction (principal); N52.1 Erectile dysfunction due to diseases classified elsewhere; N13.30 Unspecified hydronephrosis; Z13.9 Encounter for screening, unspecified
CPT/HCPCS: 99214

== ENCOUNTER → 2025-02-05 08:12 | Outpatient (BNVA) | payer MEDICARE, OTHER, SELFPAY | PROVIDERS: PCP Internal Medicine; Visit Provider Urology | DX: N32.0 Bladder-neck obstruction (principal); N52.1 Erectile dysfunction due to diseases classified elsewhere; N18.30 Chronic kidney disease, stage 3 unspecified | CPT/HCPCS: 51798; 81003; 99212 ==